=== PATIENT | female | born 1980 | race Hispanic/Latino ===

== ENCOUNTER 2017-07-12 21:12 | Emergency (ER) | payer OTHER ==
[~2017-07-12 21:12] MED LIST: ISOVUE-370 76%-LOCM 1 ML ONE; Iopamidol 370 76% 50 ML VIAL FS ONE
[2017-07-12 21:42] LABS: #Eosinphils 0.2 thou/uL (0.0-0.7); #Lymphocytes 2.9 thou/uL (1.20-3.40); #Monocytes 0.4 thou/uL (0.11-0.59); #Neutrophils 6.9 thou/uL (1.40-6.50); %Basophils 0.2 % (0.0-1.0); %Eosinophils 1.5 % (0.0-10.0); %Lymphocytes 27.8 % (21.0-51.0); %Monocytes 4.2 % (0.0-10.0); Hematocrit 32.7 % (36.0-47.0); Mean Platelet Volume 6.8 fL (7.4-10.4); Red Blood Cell (RBC) Count 4.37 mill/uL (4.20-5.40); White Blood Cell (WBC) Count 10.5 thou/uL (4.8-10.8)
[2017-07-12 21:48] LABS: PTT 25.8 SEC (22.9-36.1); Prothrombin Time 13.6 SEC (12.0-14.7)
[2017-07-12 22:01] LABS: ALT (SGPT) 19 U/L (8-55); AST (SGOT) 20 U/L (5-34); Alkaline Phosphatase 89 U/L (40-150); Anion Gap 15 mmol/L (10-20); BUN (Urea Nitrogen) 13 mg/dL (7.0-18.7); Bilirubin, Total 0.3 mg/dL (0.2-1.2); Calc. Creatinine Clearance 0 mL/min (70-130); Calcium 9.4 mg/dL (7.8-10.44); Carbon Dioxide 22 mmol/L (22-29); Chloride 106 mmol/L (98-107); Estimated GFR-MDRD Greater than 90; Globulin 4.2 g/dL (2.4-3.5); Protein, Total 8.3 g/dL (6.0-8.3)
[2017-07-12 22:02] LABS: Microcytosis SLIGHT = 6-15 cells (100X) (0-5/hpf)
[2017-07-12] MEDS ORDERED: Ondansetron HCl/PF 4 MG/2 ML Vial ONE (22:30)
--- NOTE | 2017-07-12 23:13 | RAD ---
CHEST ONE VIEW ABDOMEN TWO VIEWS: History: 37-year-old female with abdominal pain, constipation and past medial history of diverticulitis. FINDINGS: No acute intrathoracic disease. Post op cholecystectomy. Gas and fecal material in the colon. No jameson dence for overt large or small bowel obstruction, free air, overt calculus or other acute process. IMPRESSION: Unremarkable chest one view, abdomen two views. POS: KATHERINE
--- NOTE | 2017-07-13 07:34 | CT ---
ABDOMEN AND PELVIC CT SCAN WITH IV CONTRAST: HISTORY: A 37-year-old female with generalized abdominal pain. History of diverticulitis. The patient prese nts with rectal bleeding. COMPARISON: 05/13/17. FINDINGS: Lung bases are clear. There is some reflux into the distal esophagus. Status post cholecystectomy with minimal air within some of the left-sided bile ducts. Visualized pancreas, spleen, and adrenal glands are unremarkable. No renal calculus or acute obstruction. Normal-appearing appendix. 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 No evidence for acute diverticulitis. IMPRESSION: Evidence for gastroesophageal reflux. Status post cholecystectomy. No evidence for acute diverticu litis. No Ct evidence for acute appendicitis with a normal-appearing appendix. No other significan t acute process. POS: MICHAEL
== END 2017-07-13 00:20 | disposition home or self-care (01) ==
LOC: ERS 21:12
DX: K57.90 Diverticulosis of intestine, part unspecified, without perforation or abscess without bleeding (principal); K21.9 Gastro-esophageal reflux disease without esophagitis; F32.9 Major depressive disorder, single episode, unspecified; Z79.899 Other long term (current) drug therapy
CPT/HCPCS: 36415; 74022; 74177; 80053; 84702; 85025; 85610; 85730; 86850; 86900; 86901; 93005; 96374; 96375; J2270; J2405

== ENCOUNTER 2017-08-02 15:18 | Outpatient (CLI) | payer OTHER ==
[2017-08-02 16:19] LABS: #Basophils 0.1 thou/uL (0.0-0.2); #Eosinphils 0.1 thou/uL (0.0-0.7); #Lymphocytes 2.4 thou/uL (1.20-3.40); #Monocytes 0.3 thou/uL (0.11-0.59); #Neutrophils 6.1 thou/uL (1.40-6.50); %Basophils 0.7 % (0.0-1.0); %Lymphocytes 26.4 % (21.0-51.0); %Monocytes 3.6 % (0.0-10.0); Hematocrit 31.4 % (36.0-47.0); Mean Platelet Volume 6.6 fL (7.4-10.4); Red Blood Cell (RBC) Count 4.23 mill/uL (4.20-5.40)
[2017-08-02 16:25] LABS: Hemoglobin A1c 5.4 % (4.0-6.0)
[2017-08-02 16:32] LABS: Anion Gap 11 mmol/L (10-20); BUN (Urea Nitrogen) 10 mg/dL (7.0-18.7); Calc. Creatinine Clearance 0 mL/min (70-130); Calcium 9.5 mg/dL (7.8-10.44); Carbon Dioxide 25 mmol/L (22-29); Chloride 105 mmol/L (98-107); Estimated GFR-MDRD Greater than 90
== END 2017-08-02 15:19 | disposition home or self-care (01) ==
LOC: LABBT 15:18
PROVIDERS: ATTEND Student in an Organized Health Care Education/Training Program
DX: Z01.812 Encounter for preprocedural laboratory examination (principal); R10.9 Unspecified abdominal pain; D64.9 Anemia, unspecified; N92.1 Excessive and frequent menstruation with irregular cycle
CPT/HCPCS: 80048; 83036; 84703; 85025; 86850; 86900; 86901

== ENCOUNTER 2017-08-02 15:30 | Inpatient (IN) | payer OTHER ==
[2017-08-03] MEDS ORDERED: Clindamycin/D5W 900 mg/50 ml Premix Bag ONE (10:27)
[2017-08-03] MEDS ORDERED: Levofloxacin 500 mg/D5W 100 ml Premix Bag ONE (10:27)
[2017-08-03] MEDS ORDERED: Bupivacaine 0.25% HCL 30 ML VIAL ONE ×2 (13:42→16:07)
[2017-08-03] MEDS ORDERED: Bupivacaine PF 0.5% 30 ML VIAL ONE (13:43)
[2017-08-03] MEDS ORDERED: Fentanyl 100 MCG/2 ML VIAL ONE ×2 (13:45→20:59)
[2017-08-03] MEDS ORDERED: Midazolam HCl 2 mg/2 ml Vial ONE (13:45)
[2017-08-03] MEDS ORDERED: Ondansetron HCl/PF 4 MG/2 ML Vial ONE (14:08)
[2017-08-03] MEDS ORDERED: PHENYLEPHRINE-NS 100 MCG/ML 10 ML SYRINGE ONE (14:08)
[2017-08-03] MEDS ORDERED: Lidocaine 2% PF 10 ML AMP (For Epidural Use) ONE (14:08)
[2017-08-03] MEDS ORDERED: Propofol 200 MG/20 ML VIAL ONE (14:08)
[2017-08-03] MEDS ORDERED: Promethazine HCl 25 MG/ML VIAL IM PRN ×2 (14:19→22:03)
[2017-08-03] MEDS ORDERED: Promethazine HCl 25 MG/ML VIAL SLOW IVP PRN (14:19)
[2017-08-03] MEDS ORDERED: Ondansetron HCl/PF 4 MG/2 ML Vial IVP PRN ×2 (14:19→22:03)
[2017-08-03] MEDS ORDERED: Morphine 10 MG/ML VIAL ONE (18:58)
[2017-08-03] MEDS ORDERED: Morphine 10 MG/ML VIAL SLOW IVP PRN (22:03)
[2017-08-03] MEDS ORDERED: hydrALAZINE 20 MG/ML VIAL SLOW IVP PRN (22:03)
[2017-08-03 22:20] VITALS: BMI 35.2
[2017-08-03] MEDS: Morphine 2 MG/ML SYRINGE SLOW IVP PRN (22:34)
[2017-08-03] MEDS: D5 1/2 NS w/20 mEq KCL 1,000 ML IV SCH (22:36)
[2017-08-03] MEDS ORDERED: Enoxaparin Sodium 40 MG/0.4 ML SYRINGE SC SCH (22:45)
[2017-08-03] MEDS: Ketorolac Tromethamine 30 MG/ML VIAL IVP SCH (23:15)
[2017-08-03] MEDS: Famotidine/PF 20 mg/2ml Vial SLOW IVP SCH (23:17)
[2017-08-03] MEDS: Famotidine 20 MG TAB PO SCH (23:18)
[2017-08-04] MEDS: Morphine 2 MG/ML SYRINGE SLOW IVP PRN ×3 (00:24→20:32)
[2017-08-04] MEDS: Acetaminophen 1,000 MG in Premix Bag 1 BAG IVPB SCH ×4 (00:25→19:02)
[2017-08-04] MEDS: metroNIDAZOLE 500 MG in Premix Bag 1 BAG IVPB SCH ×3 (00:28→11:16)
--- NOTE | 2017-08-04 00:44 | OP ---
DATE OF OPERATION: 08/03/2017 PREOPERATIVE DIAGNOSES: 1. Menorrhagia. 2. Anemia. 3. Pelvic pain. POSTOPERATIVE DIAGNOSES: 1. Menorrhagia. 2. Anemia. 3. Pelvic pain. PROCEDURES PERFORMED: Robotic assisted total laparoscopic hysterectomy and bilateral salpingectomy. ANESTHESIA: General endotracheal. ATTENDING SURGEON: Sary Friend MD AVIATION MEDICINE SPECIALIST SURGEON: Anitra Fu MD ESTIMATED BLOOD LOSS: [address] Cervantes's dictation for full fluid and urine output. SPECIMENS: Uterus, cervix, and bilateral fallopian tubes. COMPLICATIONS: None. DRAINS: Ha catheter. FINDINGS: On exam under anesthesia, a 12-week size mobile uterus. Uterus sounded to 11 cm. On int ra-abdominal survey, the uterus was globally enlarged. The fallopian tubes and ovaries were normal bilaterally. There was a normal upper abdominal survey. OPERATIVE TECHNIQUE: The patient was taken to the operating room where general anesthesia was obtai germain without difficulty. The patient was prepped and draped in a sterile fashion in the dorsal litho jose cruz position. Ha catheter was placed in the bladder. Speculum was placed in the vagina and the anterior lip of the cervix was grasped with a single tooth tenaculum and the uterus sounded to 11 c m. The KELLY manipulator was assembled with a 10 cm tip and a 4 cm colpotomizer ring. The cervix wa s progressively dilated and the manipulator tip was inserted to the uterine fundus. The balloon was inflated. Instruments were removed out of the vagina and the colpotomizer ring was advanced to fit snugly around the cervix. Vaginal occluder balloon was then inflated and the legs were placed in l ow lithotomy. Attention was turned to the abdomen. A supraumbilical skin incision that was 12 mm w as made after infiltrating with 0.5% Marcaine without epinephrine. The Veress needle was passed int o the abdomen noting an opening pressure of 3 mmHg. Pneumoperitoneum was obtained without difficult y. Veress needle was removed. A 12 mm trocar was passed into the abdomen confirming placement with the robotic camera. Steep Trendelenburg was obtained. The right and left lower 8 mm robotic troca rs were placed after infiltrating with anesthetic under direct visualization. The right upper quadr ant medical receptionist assistant port was placed under direct visualization as well and this was 11 mm. The robot was undocked. The right robotic arm contained the monopolar scissors. The left robotic arm contained t he fenestrator bipolar. At that time, the surgeon console took control and the right fallopian tube was grasped and elevated. A window was made in the mesosalpinx, cauterizing vessels with the fenes trator and then incising with the scissors. Once the uterine cornua was met, the fallopian tube was clamped across, cauterized, transected and the fallopian tube was removed out of the abdomen. The utero-ovarian ligament was cauterized multiple times with the fenestrator and transected with scisso rs. This was taken down to the level of the round ligament that was cauterized in the mid portion a nd transected. This opened up the anterior leaf of the broad ligament that was incised with the sci ssors and taken down to the level of the bladder flap. The posterior leaf of the broad ligament was also opened up down to the level of the uterosacral. The reticular fibers of the retroperitoneum w ere taken down and subsequently the uterine vessels on the right side were skeletonized. The pedicl e was then cauterized and at that time, the vesicouterine peritoneum was identified and undermined w ith the fenestrator and incised with the scissors to create a bladder flap. At that time, the uteru s was tilted to the right side and the left fallopian tube was grasped and elevated and the mesosalp inx was cauterized and transected and the fallopian tube was then clamped across cauterized, transec giorgio and removed out of the abdomen. The utero-ovarian was cauterized and transected down to the rou nd ligament that was cauterized in the mid portion and transected, and this was incised on the anter ior leaf of the broad ligament down to the level of the contralateral side's incision. The left alex e of the vessels were skeletonized adequately as well as the posterior leaf of the broad ligament dr opped down to the uterosacral. The vessels were then cauterized, transected and dropped down below the level of the colpotomizer ring to allow the ureter to flow away. The bladder flap was then furt her created with a scoring technique on the pubocervical fascia, dissecting down bluntly with the ba ck end of the scissors. Hemostasis of the bladder flap was achieved with the fenestrator and the ri ght uterine vessels were once again cauterized, transected and taken down below the level of the col potomizer ring. Anterior colpotomy was performed, carried around to the lateral apices where the fe nestrator was flipped underneath the cardinal ligament for added hemostasis. The colpotomy was comp lete posteriorly and the uterus was then removed into the vagina. Irrigation of the vaginal cuff wa s performed and hemostasis was achieved of the vaginal cuff with the fenestrator. The scissors were traded out for the needle trencher driver and the 2-0 barbed Stratafix suture was used to close the cuff in a running fashion incorporating vaginal mucosa and posterior peritoneum in each bite and closure was excellent. The needle was removed out of the abdomen. The pelvis was irrigated. A low pressure c heck was performed and hemostasis was noted. At that time, all the instruments were removed out of the abdomen. The robot was undocked. At that time, Dr. Cervantes was called for her portion of the s urgery which was a laparoscopic sigmoidectomy and please see her dictation for details of her proced ure. My portion of the case was uncomplicated. The patient received Levaquin and clindamycin prior to the procedure secondary to penicillin anaphylaxis and all counts were correct. Vaginal cuff was checked and no active bleeding was noted.
[2017-08-04] MEDS: Ketorolac Tromethamine 30 MG/ML VIAL IVP SCH ×4 (05:37→23:34)
[2017-08-04 06:36] LABS: #Lymphocytes 1.8 thou/uL (1.20-3.40); #Monocytes 0.4 thou/uL (0.11-0.59); #Neutrophils 7.2 thou/uL (1.40-6.50); %Basophils 0.2 % (0.0-1.0); %Eosinophils 0.2 % (0.0-10.0); %Lymphocytes 19.3 % (21.0-51.0); %Monocytes 4.7 % (0.0-10.0); Hematocrit 30.8 % (36.0-47.0); Mean Platelet Volume 6.8 fL (7.4-10.4); Red Blood Cell (RBC) Count 4.11 mill/uL (4.20-5.40); White Blood Cell (WBC) Count 9.5 thou/uL (4.8-10.8)
[2017-08-04 07:00] LABS: Anion Gap 10 mmol/L (10-20); BUN (Urea Nitrogen) 4 mg/dL (7.0-18.7); Calc. Creatinine Clearance 189 mL/min (70-130); Calcium 8.8 mg/dL (7.8-10.44); Carbon Dioxide 22 mmol/L (22-29); Chloride 108 mmol/L (98-107); Estimated GFR-MDRD Greater than 90
--- NOTE | 2017-08-04 08:54 | PRG ---
DATE OF SERVICE: 08/04/2017 SUBJECTIVE: Ms. Dejesus is feeling good this morning. She did get up and ambulate in the hart last ni ght after her operation. She is not nauseated. She has not passed any flatus. Her incisions are c lean, dry, and intact. Labs are still pending. Vital signs are good. ASSESSMENT: Status post robotic laparoscopic hysterectomy and laparoscopic hand-assisted sigmoid co lectomy for menorrhagia and multiple recurrent diverticulitis. She is recovering well. She will ge t some ice chips today and continue to ambulate. An abdominal binder has been ordered since she sta mayi that her incisions feel better when there is a pressure on it.
[2017-08-04] MEDS ORDERED: FLU VACC QS2017-18 36 mo. & older 0.5 ML SYRINGE IM ONE (09:00)
[2017-08-04] MEDS: Famotidine/PF 20 mg/2ml Vial SLOW IVP SCH ×2 (09:23→21:39)
[2017-08-04] MEDS: Famotidine 20 MG TAB PO SCH ×2 (09:23→21:40)
[2017-08-04] MEDS: D5 1/2 NS w/20 mEq KCL 1,000 ML IV SCH ×3 (09:25→23:36)
--- NOTE | 2017-08-04 16:22 | PRG ---
DATE OF SERVICE: 08/04/2017 TIME OF VISIT: 09:30 SUBJECTIVE: The patient reports pain is controlled on IV morphine and Toradol. She has no nausea o r vomiting. No shortness of breath or chest pain. She has not passed gas and ambulated last night in the hallway. OBJECTIVE: VITAL SIGNS: Blood pressure 120/80, temperature 98.2, pulse is 76, respirations 16, pulse ox 97% on room air. Intake 1080 and output 2250. GENERAL: In no acute distress. CARDIAC: Regular rate and rhythm. LUNGS: Clear to auscultation bilaterally. ABDOMEN: Soft, appropriately tender to palpation. Bowel sounds are positive. No distention. Inci sions are clean, dry, and intact. EXTREMITIES: No edema, cyanosis or clubbing. LABORATORY: Hemoglobin 9.8, hematocrit 30.8, platelets 413. Chemistry is normal. ASSESSMENT: This is a 37-year-old status post robotic-assisted total laparoscopic hysterectomy, vikas ateral salpingectomy, and laparoscopic sigmoid colectomy by Dr. Cervantes. Vital signs are stable. Xiao sultana is afebrile. She is doing well and will be advanced to ice chips diet per Dr. Cervantes. She is ambulating and will continue this. An abdominal binder has been ordered and the patient is okay to have Ha catheter discontinued. Continue postoperative care.
[2017-08-04] MEDS ORDERED: Acetaminophen 325 MG TAB PO PRN (20:08)
[2017-08-04] MEDS ORDERED: HYDROcodone/Acetaminophen 7.5/325 mg Tablet PO PRN (20:08)
[2017-08-04] MEDS ORDERED: Acetaminophen 650 MG Suppository PR PRN (20:08)
[2017-08-04] MEDS: Enoxaparin Sodium 40 MG/0.4 ML SYRINGE SC SCH (21:38)
[2017-08-05] MEDS: Morphine 2 MG/ML SYRINGE SLOW IVP PRN ×2 (01:59→19:47)
[2017-08-05] MEDS: Ketorolac Tromethamine 30 MG/ML VIAL IVP SCH ×4 (06:07→23:20)
[2017-08-05] MEDS: D5 1/2 NS w/20 mEq KCL 1,000 ML IV SCH ×3 (08:38→23:20)
[2017-08-05] MEDS: Famotidine 20 MG TAB PO SCH ×2 (08:50→21:25)
[2017-08-05] MEDS: Famotidine/PF 20 mg/2ml Vial SLOW IVP SCH ×2 (08:58→20:14)
--- NOTE | 2017-08-05 13:28 | PDOC.OP ---
Operative Note - Operative Note Operative Note: PROCEDURE: Laparoscopic hand-assisted sigmoid colectomy and splenic flexure mobilization DATE OF PROCEDURE: 08/03/2017 SURGEON: Kong Cervantes M.D. PREOPERATIVE DIAGNOSES: Multiply recurrent diverticulitis POSTOPERATIVE DIAGNOSIS: Multiply recurrent diverticulitis HISTORY: Patient is a 37-year-old woman with multiply recurrent diverticulitis with 3 episodes in the past year and persistent left lower quadrant pain even between episodes of diverticulitis. She has decided to proceed with laparoscopic colectomy for symptomatically relief. She also has a history of severe menorrhagia and is going to have a concurrent hysterectomy. PROCEDURE IN DETAIL: After informed consent and appropriate bowel preparation were obtained the patient was taken to the operating room where she underwent a robotic hysterectomy by Dr. Friend. This part of the procedure is dictated under separate cover. A 6 cm periumbilical incision was then made and the GelPort placed. Positioning of the ports was suboptimal for the sigmoid colectomy so two additional 5 mm dissecting ports were placed in the upper midline and the left lower quadrant under direct vision of the laparoscope. The sigmoid colon was noted to be thickened distally but relatively normal proximally. The left colon was normal to palpation. The left colon was mobilized by incising the white line of Toldt and mobilizing the colon medially. The omentum was mobilized off of the transverse colon and the splenic flexure carefully taken down from both directions until the entire descending colon was mobilized.. Attention was then turned to the sigmoid colon. The peritoneal reflection was divided and the sigmoid colon carefully mobilized medially. The ureter was easily located in its usual position and completely avoided for the remainder of the case. There were no significant adhesions in the area where the colon overlaid the ureter, with most of the adhesions being lower in the sigmoid and between 2 loops of the sigmoid colon. The upper rectum was soft and normal. The peritoneum was divided overlying the upper rectum and the mesorectum sequentially divided with LigaSure. The previously placed right lateral 8 mm port was then removed and a 12 mm port placed at this position. An Endo SUNSHINE stapler was placed across the upper rectum and divided with 2 loads of the 45 mm stapler. The normal soft descending colon easily reached down into the pelvis to the level of the upper rectum. The area of the planned anastomosis was identified on the descending colon and the mesocolon sequentially divided with the LigaSure up to this level. The colon was then externalized through the GelPort and towels placed to prevent contamination circumferentially around the colon. The planned area of anastomosis was marked on the antimesenteric edge of the descending colon. A colotomy was created 5 cm distal to this area and to the colon sized. It accepted up to a 29 mm sizer so the 29 mm EEA stapler was obtained. The anvil was placed through the colotomy and the spike advanced through the antimesenteric edge of the descending colon at the planned anastomosis site. A pursestring suture was placed around the base of the anvil stalk and secured. The colon was then divided with the Endo SUNSHINE stapler distal to the anvil and the colon specimen passed from the table. This was not marked but the pathologists were informed that the enterotomy is at the proximal end of the specimen. The colon was then placed back into the abdominal cavity and all dirty and La passed from the field. Insufflation was resumed. Gloves were changed before resumption of laparoscopic portion of the case. The rectum easily accepted up to the 31 mm sizer. The 29 mm EEA stapler was advanced transanally to the end of the rectal pouch and the spike advanced just anterior to the staple line. This was mated to the anvil and orientation of the colon was verified. The EEA stapler was closed and fired. The stapler was then withdrawn and 2 full-thickness donuts of tissue were verified. The descending colon was then clamped and saline instilled into the pelvis. The rectum was insufflated and the staple line carefully examined. There was no bubbling through the saline and hemostasis was excellent. The saline was suctioned out and the operative site easily irrigated to clear. Hemostasis was again verified and the 12 and 8 mm ports withdrawn and closed with 0 Vicryl suture on a GraNee needle under direct laparoscopic vision. Trocar was then placed through the GelPort and the 5 mm ports withdrawn and hemostasis at these sites verified as well. The GelPort was removed and the omentum drawn down over the intestine. Seprafilm was placed between the omentum and anterior abdominal wall and the periumbilical incision was closed with a running PDS suture with excellent technical result. The incisions were copiously irrigated and skin incisions closed with 40 subcutaneous together Monocryl sutures. Dermabond dressings were placed and the patient was extubated and taken to the recovery room in good condition. Estimated blood loss for this portion of the case was minimal. There were no complications. Specimen is sigmoid colon, with enterotomy at the proximal end of specimen.
[2017-08-05] MEDS: Enoxaparin Sodium 40 MG/0.4 ML SYRINGE SC SCH (20:14)
[2017-08-05] MEDS: HYDROcodone/Acetaminophen 7.5/325 mg Tablet PO PRN (22:25)
[2017-08-06] MEDS: Ketorolac Tromethamine 30 MG/ML VIAL IVP SCH ×2 (05:27→12:22)
[2017-08-06] MEDS: HYDROcodone/Acetaminophen 7.5/325 mg Tablet PO PRN ×2 (05:31→11:29)
[2017-08-06] MEDS: D5 1/2 NS w/20 mEq KCL 1,000 ML IV SCH (07:47)
[2017-08-06] MEDS: Famotidine/PF 20 mg/2ml Vial SLOW IVP SCH (08:50)
[2017-08-06] MEDS: Famotidine 20 MG TAB PO SCH (08:55)
[2017-08-06 15:48] VITALS: BP 148/74; TEMP 98
== END 2017-08-06 17:10 | disposition home or self-care (01) | DRG 331 ==
LOC: SURG A 08-03 10:07
PROVIDERS: ADMIT Student in an Organized Health Care Education/Training Program; ATTEND Student in an Organized Health Care Education/Training Program
PROC: 0UT94ZZ Resection of Uterus, Percutaneous Endoscopic Approach (ICD-10-PCS; principal; 2017-08-03)
PROC: 0DTN4ZZ Resection of Sigmoid Colon, Percutaneous Endoscopic Approach (ICD-10-PCS; 2017-08-03)
PROC: 0UTC4ZZ Resection of Cervix, Percutaneous Endoscopic Approach (ICD-10-PCS; 2017-08-03)
PROC: 0UT74ZZ Resection of Bilateral Fallopian Tubes, Percutaneous Endoscopic Approach (ICD-10-PCS; 2017-08-03)
PROC: 8E0W4CZ Robotic Assisted Procedure of Trunk Region, Percutaneous Endoscopic Approach (ICD-10-PCS; 2017-08-03)
DX: K57.32 Diverticulitis of large intestine without perforation or abscess without bleeding (principal); D64.9 Anemia, unspecified; N92.0 Excessive and frequent menstruation with regular cycle
CPT/HCPCS: 36415; 36416; 80048; 83036; 84703; 85025; 86850; 86900; 86901; 88307; J0131; J1650; J1885; J1956; J2001; J2250; J2270; J2405; J2704; J3010; J3490; S0020; S0028

== ENCOUNTER 2018-03-05 18:37 | Emergency (ER) | payer OTHER ==
[~2018-03-05 18:37] MED LIST changes: -Iopamidol 370 76% 50 ML VIAL FS ONE
[2018-03-05 19:41] LABS: #Eosinphils 0.2 thou/uL (0.0-0.7); #Lymphocytes 2.9 thou/uL (1.20-3.40); #Monocytes 0.6 thou/uL (0.11-0.59); #Neutrophils 7.8 thou/uL (1.40-6.50); %Basophils 0.1 % (0.0-1.0); %Eosinophils 1.9 % (0.0-10.0); %Lymphocytes 25.3 % (21.0-51.0); %Monocytes 5.1 % (0.0-10.0); %Neutrophils 67.6 % (42.0-75.0); Hemoglobin 11.4 g/dL (12.0-16.0); Mean Corpuscular HGB CONC 32.7 g/dL (32.0-36.0); Mean Corpuscular Hemoglobin 25.5 pg (27.0-31.0); Mean Corpuscular Volume 77.9 fl (81.0-99.0); Mean Platelet Volume 6.5 fL (7.4-10.4); Platelet Count 410 thou/uL (130-400); RBC Distribution Width 14.3 % (11.5-14.5); Red Blood Cell (RBC) Count 4.47 mill/uL (4.20-5.40); White Blood Cell (WBC) Count 11.5 thou/uL (4.8-10.8)
[2018-03-05 20:03] LABS: ALT (SGPT) 32 U/L (8-55); AST (SGOT) 22 U/L (5-34); Albumin 4.1 g/dL (3.5-5.0); Alkaline Phosphatase 81 U/L (40-150); Anion Gap 11 mmol/L (10-20); BUN (Urea Nitrogen) 11 mg/dL (7.0-18.7); Bilirubin, Total 0.3 mg/dL (0.2-1.2); Calc. Creatinine Clearance 0 mL/min (70-130); Calcium 9.2 mg/dL (7.8-10.44); Carbon Dioxide 22 mmol/L (22-29); Chloride 108 mmol/L (98-107); Estimated GFR-MDRD Greater than 90; Globulin 3.7 g/dL (2.4-3.5); Glucose 99 mg/dL (70-105); Lipase 24 U/L (8-78); Potassium 3.8 mmol/L (3.5-5.1); Protein, Total 7.8 g/dL (6.0-8.3); Sodium 137 mmol/L (136-145)
[2018-03-05 20:32] LABS: Troponin I Less than 0.010 ng/mL (< 0.028)
[2018-03-05 23:51] LABS: Bilirubin Negative (Negative); Blood, Urine Negative (Negative); Clarity CLEAR (Clear); Glucose, Urine (Dipstick) Negative (Negative); Leukocyte Negative (Negative); Nitrite Negative (Negative); Protein, Urine (Dipstick) Negative (Neg-Trace); Urobilinogen 0.2 mg/dL (0.2-1.0); pH, Urine 6.5 (5.0-9.0)
[2018-03-06] MEDS ORDERED: Morphine 4 MG/ML VIAL ONE (00:05)
[2018-03-06] MEDS ORDERED: Ondansetron ODT 4 MG TAB ONE (00:06)
--- NOTE | 2018-03-06 07:38 | CT ---
ABDOMEN AND PELVIS CT WITH CONTRAST: COMPARISON: 07/12/17. CLINICAL HISTORY: Diffuse lower abdominal pain. FINDINGS: Mild dependent volume loss is present at the lung bases. There is hepatic steatosis. Evidence of pr ior cholecystectomy. Kidneys and spleen are unremarkable. No peripancreatic inflammation or evidenc e of adrenal mass. Postoperative pneumobilia is present. There is a noninflamed prominent-sized fat -containing periumbilical hernia with a relative wide neck. Abdominal aorta is normal in caliber. N o adenopathy is seen. The bowel is incompletely evaluated without enteric contrast. There is modera te retained fecal material in the colon. Small hiatal hernia is seen. Anastomotic suture material i s present at the rectosigmoid region. No ascites. No acute osseous pathology. IMPRESSION: 1. Hepatic steatosis. 2. Fat-containing periumbilical hernia. Incomplete assessment of the bowel without enteric contrast . There is evidence of interval anastomotic suture material at the rectosigmoid region. Correlate w ith surgical history. POS: MICHAEL
== END 2018-03-06 02:44 | disposition home or self-care (01) ==
LOC: ERS 18:37
DX: K42.9 Umbilical hernia without obstruction or gangrene (principal); K76.0 Fatty (change of) liver, not elsewhere classified; D64.9 Anemia, unspecified; K21.9 Gastro-esophageal reflux disease without esophagitis; F32.9 Major depressive disorder, single episode, unspecified
CPT/HCPCS: 36415; 74177; 80053; 81003; 83690; 84484; 85025; 93005; 96374; 96375; J2270; Q0162

== ENCOUNTER 2018-05-17 11:48 | Emergency (ER) | payer OTHER | END 2018-05-17 14:08 | disposition home or self-care (01) | LOC: ERS 11:48 | DX: K29.70 Gastritis, unspecified, without bleeding (principal); D50.9 Iron deficiency anemia, unspecified; F32.9 Major depressive disorder, single episode, unspecified; K21.9 Gastro-esophageal reflux disease without esophagitis | CPT/HCPCS: 99283 ==

== ENCOUNTER 2018-06-14 17:41 | Emergency (ER) | payer OTHER | END 2018-06-14 19:01 | disposition home or self-care (01) | LOC: ERS 17:41 | DX: M79.644 Pain in right finger(s) (principal); M79.645 Pain in left finger(s); K21.9 Gastro-esophageal reflux disease without esophagitis; D50.0 Iron deficiency anemia secondary to blood loss (chronic); F32.9 Major depressive disorder, single episode, unspecified; Z79.899 Other long term (current) drug therapy | CPT/HCPCS: 99283 ==

== ENCOUNTER 2018-07-12 18:44 | Emergency (ER) | payer OTHER, SELFPAY ==
[2018-07-12] MEDS ORDERED: Metoclopramide HCl 10 MG/2 ML VIAL ONE (19:49)
[2018-07-12] MEDS ORDERED: diphenhydrAMINE 50 MG/ML VIAL IVP ONE (20:00)
[2018-07-12 20:09] LABS: #Eosinphils 0.2 thou/uL (0.0-0.7); #Monocytes 0.4 thou/uL (0.11-0.59); %Basophils 0.4 % (0.0-1.0); %Eosinophils 1.9 % (0.0-10.0); %Lymphocytes 20.6 % (21.0-51.0); %Monocytes 3.8 % (0.0-10.0); %Neutrophils 73.2 % (42.0-75.0); Hemoglobin 12.1 g/dL (12.0-16.0); Mean Corpuscular HGB CONC 32.8 g/dL (32.0-36.0); Mean Corpuscular Hemoglobin 26.5 pg (27.0-31.0); Mean Corpuscular Volume 80.8 fL (78.0-98.0); Mean Platelet Volume 6.6 fL (7.4-10.4); Platelet Count 420 thou/uL (130-400); RBC Distribution Width 14.2 % (11.5-14.5); Red Blood Cell (RBC) Count 4.58 mill/uL (4.20-5.40); White Blood Cell (WBC) Count 9.6 thou/uL (4.8-10.8)
[2018-07-12 20:16] LABS: Bilirubin Negative (Negative); Blood, Urine Negative (Negative); Clarity CLEAR (Clear); Glucose, Urine (Dipstick) Negative (Negative); Leukocyte Negative (Negative); Nitrite Negative (Negative); Protein, Urine (Dipstick) Negative (Neg-Trace); Specific Gravity, Urine 1.015 (1.002-1.036); Urobilinogen 0.2 mg/dL (0.2-1.0)
[2018-07-12 20:34] LABS: ALT (SGPT) 68 U/L (8-55); AST (SGOT) 43 U/L (5-34); Albumin 4.4 g/dL (3.5-5.0); Alkaline Phosphatase 92 U/L (40-150); Anion Gap 13 mmol/L (10-20); BUN (Urea Nitrogen) 6 mg/dL (7.0-18.7); Bilirubin, Total 0.6 mg/dL (0.2-1.2); Calc. Creatinine Clearance 0 mL/min (70-130); Calcium 9.5 mg/dL (7.8-10.44); Carbon Dioxide 22 mmol/L (22-29); Chloride 105 mmol/L (98-107); Estimated GFR-MDRD Greater than 90; Globulin 3.8 g/dL (2.4-3.5); Glucose 96 mg/dL (70-105); Potassium 3.8 mmol/L (3.5-5.1); Protein, Total 8.2 g/dL (6.0-8.3); Sodium 136 mmol/L (136-145)
--- NOTE | 2018-07-12 20:35 | CT ---
HEAD CT WITHOUT CONTRAST: 07/12/18 COMPARISON: 12/18/15. HISTORY: Headache, numbness, tingling. FINDINGS: No parenchymal hemorrhage. No extra-axial hematoma. No midline shift. Basilar cisterns are patent. Br ain volume is age appropriate. Cortical mccormack-white matter differentiation is preserved. The ventricles and sulci are patent and symmetric. The calvarium is intact. Adequate aeration of the sinuses and mastoid air cells. IMPRESSION: No acute intracranial process. POS: PPP
[2018-07-12] MEDS ORDERED: Ketorolac Tromethamine 30 MG/ML VIAL ONE (21:10)
== END 2018-07-12 21:31 | disposition home or self-care (01) ==
LOC: ERS 18:44
DX: R51 Headache (principal); K21.9 Gastro-esophageal reflux disease without esophagitis; F32.9 Major depressive disorder, single episode, unspecified; Z79.899 Other long term (current) drug therapy
CPT/HCPCS: 70450; 80053; 81003; 85025; 96365; 96375; J1200; J1885; J2765

== ENCOUNTER 2018-09-16 15:27 | Outpatient (CLI) | payer OTHER | END 2018-09-16 15:28 | disposition home or self-care (01) | LOC: DTY/OP 15:27 | PROVIDERS: ATTEND Specialist | DX: Z01.818 Encounter for other preprocedural examination (principal); E66.01 Morbid (severe) obesity due to excess calories | CPT/HCPCS: 97802 ==

== ENCOUNTER 2018-10-28 06:33 | Outpatient (CLI) | payer OTHER ==
--- NOTE | 2018-10-28 08:14 | ULT ---
RIGHT UPPER QUADRANT ULTRASOUND: 10/28/2018 PROVIDED CLINICAL HISTORY: Elevated LFTs. FINDINGS: The visualized portions of the pancreas and IVC appear normal. The liver demonstrates diffusely incr eased echogenicity of the parenchyma with a coarsened hepatic echotexture. No evidence for mass or i ntrahepatic biliary ductal dilatation. The gallbladder is not visualized, compatible with the provid ed clinical history of a prior cholecystectomy. The right kidney demonstrates no evidence for hydron ephrosis or mass. The common duct is not dilated. IMPRESSION: Prominent fatty infiltration of the liver. POS: OFF
== END 2018-10-28 06:34 | disposition home or self-care (01) ==
LOC: ULT 06:33
PROVIDERS: ATTEND Family Medicine
DX: R74.0 Nonspecific elevation of levels of transaminase and lactic acid dehydrogenase [LDH] (principal); K76.0 Fatty (change of) liver, not elsewhere classified; Z90.49 Acquired absence of other specified parts of digestive tract
CPT/HCPCS: 76705

== ENCOUNTER 2018-11-24 19:10 | Emergency (ER) | payer OTHER ==
--- NOTE | 2018-11-24 20:13 | RAD ---
CHEST TWO VIEWS: History: Cough. Comparison: 05-13-11 FINDINGS: Heart size and mediastinum within normal limits. Lungs are clear of infiltrates. No bony findings. IMPRESSION: No active intrathoracic disease. POS: [facility]
[2018-11-24] MEDS ORDERED: Dexamethasone 10 MG/ML VIAL ONE (21:32)
== END 2018-11-24 21:54 | disposition home or self-care (01) ==
LOC: ERS 19:10
DX: R05 Cough (principal); K21.9 Gastro-esophageal reflux disease without esophagitis; D50.0 Iron deficiency anemia secondary to blood loss (chronic); I10 Essential (primary) hypertension; F32.9 Major depressive disorder, single episode, unspecified; Z79.899 Other long term (current) drug therapy
CPT/HCPCS: 71046; 96372; J1100

== ENCOUNTER 2019-01-12 19:45 | Emergency (ER) | payer OTHER ==
[2019-01-12 20:44] LABS: Bilirubin Negative (Negative); Blood, Urine Negative (Negative); Clarity CLEAR (Clear); Glucose, Urine (Dipstick) Negative (Negative); Leukocyte Negative (Negative); Nitrite Negative (Negative); Protein, Urine (Dipstick) Negative (Neg-Trace); Specific Gravity, Urine 1.017 (1.002-1.036); Urobilinogen 0.2 mg/dL (0.2-1.0)
[2019-01-12 20:57] LABS: #Basophils 0.1 thou/uL (0.0-0.2); #Eosinphils 0.4 thou/uL (0.0-0.7); #Lymphocytes 2.7 thou/uL (1.20-3.40); #Monocytes 0.5 thou/uL (0.11-0.59); #Neutrophils 10.6 thou/uL (1.40-6.50); %Basophils 0.5 % (0.0-1.0); %Eosinophils 2.6 % (0.0-10.0); %Lymphocytes 18.9 % (21.0-51.0); %Monocytes 3.8 % (0.0-10.0); %Neutrophils 74.3 % (42.0-75.0); Hemoglobin 12.5 g/dL (12.0-16.0); Mean Corpuscular HGB CONC 32.5 g/dL (32.0-36.0); Mean Corpuscular Hemoglobin 27.3 pg (27.0-31.0); Mean Corpuscular Volume 83.9 fL (78.0-98.0); Mean Platelet Volume 6.9 fL (7.4-10.4); Platelet Count 413 thou/uL (130-400); RBC Distribution Width 13.9 % (11.5-14.5); Red Blood Cell (RBC) Count 4.57 mill/uL (4.20-5.40); White Blood Cell (WBC) Count 14.3 thou/uL (4.8-10.8)
[2019-01-12 21:19] LABS: ALT (SGPT) 131 U/L (8-55); AST (SGOT) 99 U/L (5-34); Albumin 4.2 g/dL (3.5-5.0); Alkaline Phosphatase 113 U/L (40-150); Anion Gap 16 mmol/L (10-20); BUN (Urea Nitrogen) 11 mg/dL (7.0-18.7); Bilirubin, Total 0.3 mg/dL (0.2-1.2); Calc. Creatinine Clearance 0 mL/min (70-130); Calcium 9.5 mg/dL (7.8-10.44); Carbon Dioxide 21 mmol/L (22-29); Chloride 104 mmol/L (98-107); Estimated GFR-MDRD Greater than 90; Globulin 3.9 g/dL (2.4-3.5); Glucose 106 mg/dL (70-105); Lipase 20 U/L (8-78); Potassium 3.7 mmol/L (3.5-5.1); Protein, Total 8.1 g/dL (6.0-8.3); Sodium 137 mmol/L (136-145)
[2019-01-12] MEDS ORDERED: Ondansetron ODT 4 MG TAB ONE (21:20)
[2019-01-12 21:46] LABS: Troponin I Less than 0.010 ng/mL (< 0.028)
[2019-01-12] MEDS ORDERED: Dicyclomine 20 MG TAB ONE (22:26)
== END 2019-01-12 22:53 | disposition home or self-care (01) ==
LOC: ERS 19:45
DX: R11.2 Nausea with vomiting, unspecified (principal); F32.9 Major depressive disorder, single episode, unspecified; D50.0 Iron deficiency anemia secondary to blood loss (chronic); K21.9 Gastro-esophageal reflux disease without esophagitis; I10 Essential (primary) hypertension; Z79.899 Other long term (current) drug therapy
CPT/HCPCS: 36415; 80053; 81003; 83690; 84484; 85025; 99284; Q0162

== ENCOUNTER 2019-02-24 04:25 | Outpatient (CLI) | payer OTHER ==
[2019-02-24 16:39] LABS: #Eosinphils 0.3 thou/uL (0.0-0.7); #Lymphocytes 3.1 thou/uL (1.20-3.40); #Monocytes 0.4 thou/uL (0.11-0.59); #Neutrophils 7.5 thou/uL (1.40-6.50); %Basophils 0.1 % (0.0-1.0); %Eosinophils 2.7 % (0.0-10.0); %Lymphocytes 27.2 % (21.0-51.0); %Monocytes 3.8 % (0.0-10.0); %Neutrophils 66.2 % (42.0-75.0); Mean Corpuscular HGB CONC 32.7 g/dL (32.0-36.0); Mean Corpuscular Hemoglobin 27.7 pg (27.0-31.0); Mean Corpuscular Volume 84.7 fL (78.0-98.0); Platelet Count 462 thou/uL (130-400); RBC Distribution Width 12.9 % (11.5-14.5); Red Blood Cell (RBC) Count 4.33 mill/uL (4.20-5.40); White Blood Cell (WBC) Count 11.3 thou/uL (4.8-10.8)
[2019-02-24 16:57] LABS: Anion Gap 12 mmol/L (10-20); BUN (Urea Nitrogen) 13 mg/dL (7.0-18.7); Calc. Creatinine Clearance 0 mL/min (70-130); Calcium 9.8 mg/dL (7.8-10.44); Carbon Dioxide 25 mmol/L (22-29); Chloride 105 mmol/L (98-107); Estimated GFR-MDRD Greater than 90; Glucose 108 mg/dL (70-105); Potassium 3.7 mmol/L (3.5-5.1); Sodium 138 mmol/L (136-145)
[2019-02-24 17:05] LABS: Hemoglobin A1c 6.1 % (4.0-6.0)
--- NOTE | 2019-02-26 09:27 | EKG ---
Test Reason : Blood Pressure : / mmHG Vent. Rate : 087 BPM Atrial Rate : 087 BPM P-R Int : 152 ms QRS Dur : 084 ms QT Int : 364 ms P-R-T Axes : 050 039 024 degrees QTc Int : 438 ms Normal sinus rhythm Inferior infarct (cited on or before 05-MAR-2018) Abnormal ECG When compared with ECG of 05-MAR-2018 20:15, No significant change was found Confirmed by DR. John CARVAJAL ([id number]) on 02/26/2019 9:26:59 AM Referred By: GUERITA Confirmed By:DR. John CARVAJAL
== END 2019-02-24 04:26 | disposition home or self-care (01) ==
LOC: LABBT 04:25
PROVIDERS: ATTEND Specialist
DX: Z01.818 Encounter for other preprocedural examination (principal); E66.01 Morbid (severe) obesity due to excess calories; E11.9 Type 2 diabetes mellitus without complications; I10 Essential (primary) hypertension; K44.9 Diaphragmatic hernia without obstruction or gangrene; Z68.35 Body mass index [BMI] 35.0-35.9, adult; K21.9 Gastro-esophageal reflux disease without esophagitis
CPT/HCPCS: 80048; 83036; 85025; 93005; 93010

== ENCOUNTER 2019-02-24 11:00 | Inpatient (IN) | payer OTHER ==
[2019-02-24 15:57] VITALS: BMI 39.1
[2019-03-02] MEDS ORDERED: Midazolam HCl 2 mg/2 ml Vial ONE (06:36)
[2019-03-02] MEDS ORDERED: Fentanyl 250 MCG/5 ML VIAL ONE (06:36)
[2019-03-02] MEDS ORDERED: Heparin 5,000 UNITS/ML VIAL ONE (06:45)
[2019-03-02] MEDS ORDERED: Ketorolac Tromethamine 30 MG/ML VIAL ONE (06:45)
[2019-03-02] MEDS ORDERED: Scopolamine 1.5 mg/72 hour Patch ONE (06:45)
[2019-03-02] MEDS ORDERED: Sodium Chloride 0.9% 100 ML ONE (06:56)
[2019-03-02] MEDS ORDERED: cefOXitin 2 GM VIAL ONE (06:56)
[2019-03-02] MEDS ORDERED: Bupivacaine/Epinephrine 0.25% 30 ML VIAL ONE (07:13)
[2019-03-02] MEDS ORDERED: cefOXitin Sodium/Dextrose,Iso 2 GM in Premix Bag 1 BAG IVPB SCH (07:15)
[2019-03-02] MEDS ORDERED: Promethazine HCl 25 MG/ML VIAL IM PRN ×2 (11:08→13:57)
[2019-03-02] MEDS ORDERED: Ondansetron HCl/PF 4 MG/2 ML Vial IVP PRN (11:08)
[2019-03-02] MEDS ORDERED: Promethazine HCl 25 MG/ML VIAL SLOW IVP PRN (11:08)
[2019-03-02] MEDS ORDERED: Promethazine HCl 25 MG/ML VIAL ONE (11:38)
[2019-03-02] MEDS ORDERED: Fentanyl 100 MCG/2 ML VIAL ONE ×2 (11:38→12:04)
[2019-03-02] MEDS ORDERED: D5 1/2 NS w/20 mEq KCL 1,000 ML ONE (12:04)
[2019-03-02] MEDS ORDERED: hydrALAZINE 20 MG/ML VIAL SLOW IVP PRN (13:57)
[2019-03-02] MEDS ORDERED: Dextrose 50% Abboject 50 ML SYRINGE SLOW IVP PRN (13:57)
[2019-03-02] MEDS ORDERED: Morphine 2 MG/ML SYRINGE SLOW IVP PRN (13:57)
[2019-03-02] MEDS ORDERED: Dextrose 5% in Water 1,000 ML IV PRN (13:57)
[2019-03-02] MEDS ORDERED: Morphine 4 MG/ML VIAL SLOW IVP PRN (13:57)
[2019-03-02] MEDS ORDERED: diphenhydrAMINE 50 MG/ML VIAL IVP PRN (13:57)
[2019-03-02] MEDS ORDERED: Ondansetron PF 4 MG/2 ML Vial IVP PRN (13:57)
[2019-03-02] MEDS ORDERED: Pantoprazole 40 MG VIAL IVP SCH (14:00)
[2019-03-02] MEDS: Ketorolac Tromethamine 30 MG/ML VIAL IVP SCH ×2 (14:32→20:39)
[2019-03-02] MEDS: Acetaminophen 1,000 MG in Premix Bag 1 BAG IVPB SCH ×2 (14:32→20:36)
[2019-03-02] MEDS ORDERED: Sodium Chloride 0.9% (PF) 10 ML VIAL FS PRN (14:34)
[2019-03-02] MEDS: D5 1/2 NS w/20 mEq KCL 1,000 ML IV SCH ×2 (15:13→18:44)
[2019-03-02] MEDS ORDERED: Enoxaparin Sodium 40 MG/0.4 ML SYRINGE SC SCH (21:00)
[2019-03-03] MEDS: Ketorolac Tromethamine 30 MG/ML VIAL IVP SCH ×2 (02:37→09:36)
[2019-03-03] MEDS: Acetaminophen 1,000 MG in Premix Bag 1 BAG IVPB SCH (02:37)
[2019-03-03] MEDS: D5 1/2 NS w/20 mEq KCL 1,000 ML IV SCH (02:38)
[2019-03-03 05:40] LABS: #Eosinphils 0.1 thou/uL (0.0-0.7); #Lymphocytes 2.4 thou/uL (1.20-3.40); #Monocytes 0.6 thou/uL (0.11-0.59); #Neutrophils 11.5 thou/uL (1.40-6.50); %Basophils 0.1 % (0.0-1.0); %Eosinophils 0.9 % (0.0-10.0); %Lymphocytes 16.2 % (21.0-51.0); %Monocytes 3.9 % (0.0-10.0); %Neutrophils 78.9 % (42.0-75.0); Hemoglobin 11.5 g/dL (12.0-16.0); Mean Corpuscular Hemoglobin 27.4 pg (27.0-31.0); Mean Corpuscular Volume 85.7 fL (78.0-98.0); Mean Platelet Volume 6.7 fL (7.4-10.4); Platelet Count 445 thou/uL (130-400); RBC Distribution Width 12.9 % (11.5-14.5); Red Blood Cell (RBC) Count 4.18 mill/uL (4.20-5.40); White Blood Cell (WBC) Count 14.6 thou/uL (4.8-10.8)
[2019-03-03 06:51] LABS: Anion Gap 13 mmol/L (10-20); BUN (Urea Nitrogen) 5 mg/dL (7.0-18.7); Calc. Creatinine Clearance 189 mL/min (70-130); Calcium 9.5 mg/dL (7.8-10.44); Carbon Dioxide 23 mmol/L (22-29); Chloride 106 mmol/L (98-107); Estimated GFR-MDRD Greater than 90; Glucose 98 mg/dL (70-105); Potassium 4.4 mmol/L (3.5-5.1); Sodium 138 mmol/L (136-145)
[2019-03-03 08:00] VITALS: BP 124/80; TEMP 98.3
[2019-03-03] MEDS ORDERED: Hydrocodone-Acetamin 15 ML UDCUP PO PRN (12:00)
--- NOTE | 2019-03-04 22:16 | OP ---
DATE OF PROCEDURE: 03/02/2019 PREOPERATIVE DIAGNOSES: Morbid obesity, ventral incisional hernia. POSTOPERATIVE DIAGNOSES: Morbid obesity, ventral incisional hernia. OPERATION PERFORMED: Laparoscopic gastric bypass with repair of ventral incisional hernia. FOLDER MACHINE: Dr. Kong Cervantes. ANESTHESIA: General endotracheal. INDICATIONS: The patient is a 38-year-old, morbidly obese, female. She gives a long history of gastroesophageal reflux. Preoperative testing had indicated the likelihood of a hiatal hernia. Plan was to proceed with a laparoscopic gastric bypass and hiatal hernia repair. Additionally, she had a prior sigmoid colectomy. She appeared to have an incisional periumbilical hernia from that surgery. DESCRIPTION OF PROCEDURE: Informed consent was obtained. The patient was taken to the operating room, where general endotracheal anesthesia was obtained with the patient in the supine position. Abdomen was prepped with ChloraPrep and draped in sterile fashion. Local anesthetic was infiltrated using 0.25% Marcaine with epinephrine and a 5-mm supraumbilical incision was created, through which a Veress needle was passed into the peritoneal cavity and pneumoperitoneum was established using carbon dioxide up to a pressure of 15 mmHg. A 5-mm trocar port was passed through the same incision and a laparoscopic camera was passed through this port. Under direct vision, I placed two left upper abdominal incisions, placing a 5-mm port in the left subcostal location and a 15-mm port in the left paramedian location. There were abundant adhesions to the anterior abdominal wall and some in the right abdomen as well. These were taken down using LigaSure dissection in order to clear the anterior abdominal wall. Most of these adhesions were in the area of the recognized incisional hernia. Since we were proceeding with a bypass, all of these omental adhesions had to be lysed in order to give access to the small bowel. When this was completely freed, there was recognized to be a well-defined defect in the anterior abdominal wall measuring an estimated 3.5 cm. Two additional ports were placed in the right abdomen under direct vision, placing a 12 and a 5-mm port in their usual locations. The omentum was then grasped and reflected into the upper abdomen. There were no pelvic adhesions. The omentum was split in the midline down to the level of the transverse colon. This was done with the LigaSure. The ligament of Treitz was then identified and the small bowel was traced 40 cm distally, at which point it was divided with a single fire of the white load of the 60 mm [place] stapler. The distal limb of small bowel was devascularized for a length of 5 cm by taking down the mesentery again using the LigaSure. I then traced the small bowel 100 cm distally and at that point, I created an anastomosis between the proximal stapled end of small bowel and the Nicola limb 100 cm distally. This anastomosis was created with a single firing of the white load of the [place] stapler. The enterotomy was closed with another transverse fire of the white load of the [place] stapler. The mesenteric defect was closed with 3 interrupted sutures of 3-0 Vicryl. The patient was then placed into reverse Trendelenburg. Attention was turned to the stomach. The Leroy retractor was placed in order to elevate the left lobe of the liver. There was no immediate evidence of a hiatal hernia. I dissected the angle of His and still saw no definite evidence of a hiatal hernia. I decided therefore not to pursue hiatal hernia repair and turned my attention to the lesser curve. 5 cm from the gastroesophageal junction, the lesser curve was dissected to give access to the lesser sac. A transverse firing of the blue load of the [place] stapler was made across the stomach at this level. Distal to the staple line in the stomach, a gastrotomy was created, through which the anvil of a 25-mm EEA stapler was passed into the upper pouch. The spike of the anvil was brought out through the anterior aspect of the upper pouch just proximal to the staple line using the 5-mm band Passer. The gastric pouch was then completed with two firings of the blue load of the [place] stapler. The gastrotomy was closed with two firings of the same stapler. There was oozing of blood from along the staple line on both the pouch and the resected segment of the stomach. This was controlled with placement of hemoclips. The spike was removed from the anvil. Attention was then turned to the Nicola limb. In the devascularized segment, an enterotomy was created and the 25 mm stapler was brought through the abdominal wall and passed through the enterotomy and then passed a few centimeters distally. The spike was advanced through the small bowel wall and an anastomosis was created between the gastric pouch and the small bowel by mating the anvil to the stapler, approximating the ends of the bowel and firing the stapler. The staple was removed uneventfully and the donuts were inspected and found to be intact. The enterotomy in the small bowel was resected along with the entire devascularized area with a final firing of the white load of the [place] stapler and that segment of the small bowel was removed. Three sutures were placed in the gastrojejunostomy to buttress the staple line using 3-0 Vicryl. The nasogastric tube was then advanced through the anastomosis, and with the anastomosis and all staple lines under water, air was insufflated into the NG tube with no evidence of air leak. The NG tube was then removed. All irrigant was aspirated. There had been no significant blood loss in any portion of the operation, but the area was irrigated and all irrigant was aspirated. Attention was then turned to the ventral hernia. This was repaired with 3 interrupted sutures of 0 Vicryl placed using the GraNee needle. These sutures were secured with low intraperitoneal pressure allowing complete closure of the fascial defect. The fascia at the 12-mm and the 15-mm ports was closed with 0 Vicryl suture using a GraNee needle. All ports and instruments were removed under direct vision. Pneumoperitoneum was carefully evacuated. Additional 0.25% Marcaine with epinephrine was infiltrated at each port site. Skin edges were approximated with 4-0 Monocryl subcuticular suture. Dermabond was placed externally. There were no complications. The patient tolerated the procedure well and was taken to the recovery room in stable condition. Job ID: [id number]
== END 2019-03-03 11:04 | disposition home or self-care (01) | DRG 621 ==
LOC: SURG A 03-02 06:19 → EDSTATUS 03-02 13:48
PROVIDERS: ADMIT Specialist; ATTEND Specialist
PROC: 0D164ZL Bypass Stomach to Transverse Colon, Percutaneous Endoscopic Approach (ICD-10-PCS; principal; 2019-03-02)
DX: E66.01 Morbid (severe) obesity due to excess calories (principal); I10 Essential (primary) hypertension; K21.0 Gastro-esophageal reflux disease with esophagitis; Z68.39 Body mass index [BMI] 39.0-39.9, adult; Z79.899 Other long term (current) drug therapy; Z98.51 Tubal ligation status; Z90.49 Acquired absence of other specified parts of digestive tract
CPT/HCPCS: 36415; 80048; 85025; 94760; C9113; J0131; J0694; J1644; J1650; J1885; J2250; J2270; J2405; J2550; J3010; J3490

== ENCOUNTER 2019-07-11 17:13 | Emergency (ER) | payer OTHER ==
[2019-07-11] MEDS ORDERED: Ondansetron PF 4 MG/2 ML Vial ONE (18:07)
[2019-07-11] MEDS ORDERED: Meclizine HCl 25 MG TAB ONE (18:07)
[2019-07-11 18:39] LABS: BHCG - Serum Negative (NEGATIVE); Pregs Control Background? CLEAR/WHITE (CLR/WHITE); Pregs Control Bar Appear? YES (CONTROL BAR)
[2019-07-11 18:40] LABS: #Eosinphils 0.2 thou/uL (0.0-0.7); #Lymphocytes 2.5 thou/uL (1.20-3.40); #Monocytes 0.5 thou/uL (0.11-0.59); #Neutrophils 6.7 thou/uL (1.40-6.50); %Basophils 0.4 % (0.0-1.0); %Eosinophils 2.2 % (0.0-10.0); %Lymphocytes 25.3 % (21.0-51.0); %Monocytes 4.8 % (0.0-10.0); %Neutrophils 67.2 % (42.0-75.0); Hemoglobin 11.2 g/dL (12.0-16.0); Mean Corpuscular HGB CONC 33.3 g/dL (32.0-36.0); Mean Corpuscular Hemoglobin 27.6 pg (27.0-31.0); Mean Platelet Volume 7.1 fL (7.4-10.4); Platelet Count 428 thou/uL (130-400); RBC Distribution Width 12.6 % (11.5-14.5); Red Blood Cell (RBC) Count 4.07 mill/uL (4.20-5.40); White Blood Cell (WBC) Count 9.9 thou/uL (4.8-10.8)
[2019-07-11 18:55] LABS: ALT (SGPT) 17 U/L (8-55); AST (SGOT) 20 U/L (5-34); Albumin 3.9 g/dL (3.5-5.0); Alkaline Phosphatase 119 U/L (40-110); Anion Gap 11 mmol/L (10-20); BUN (Urea Nitrogen) 10 mg/dL (7.0-18.7); Bilirubin, Total 0.3 mg/dL (0.2-1.2); Calc. Creatinine Clearance 0 mL/min (70-130); Calcium 8.8 mg/dL (7.8-10.44); Carbon Dioxide 23 mmol/L (22-29); Chloride 109 mmol/L (98-107); Estimated GFR-MDRD Greater than 90; Globulin 3.5 g/dL (2.4-3.5); Glucose 89 mg/dL (70-105); Magnesium 2.1 mg/dL (1.6-2.6); Potassium 3.3 mmol/L (3.5-5.1); Protein, Total 7.4 g/dL (6.0-8.3); Sodium 140 mmol/L (136-145)
== END 2019-07-11 19:32 | disposition home or self-care (01) ==
LOC: ERS 17:13
DX: H81.13 Benign paroxysmal vertigo, bilateral (principal); I10 Essential (primary) hypertension; K21.9 Gastro-esophageal reflux disease without esophagitis; D50.9 Iron deficiency anemia, unspecified; F32.9 Major depressive disorder, single episode, unspecified; Z79.899 Other long term (current) drug therapy
CPT/HCPCS: 36416; 80053; 83735; 84703; 85025; 96361; 96374; J2405; J8597

== ENCOUNTER 2019-08-03 07:46 | Emergency (ER) | payer OTHER ==
[2019-08-03] MEDS ORDERED: Morphine 4 MG/ML VIAL ONE ×2 (08:30→10:47)
[2019-08-03] MEDS ORDERED: Ondansetron PF 4 MG/2 ML Vial ONE (08:30)
[2019-08-03 08:35] LABS: #Eosinphils 0.2 thou/uL (0.0-0.7); #Lymphocytes 2.4 thou/uL (1.20-3.40); #Monocytes 0.4 thou/uL (0.11-0.59); #Neutrophils 6.1 thou/uL (1.40-6.50); %Basophils 0.5 % (0.0-1.0); %Eosinophils 2.5 % (0.0-10.0); %Lymphocytes 26.5 % (21.0-51.0); %Monocytes 4.1 % (0.0-10.0); %Neutrophils 66.4 % (42.0-75.0); Hemoglobin 12.1 g/dL (12.0-16.0); Mean Corpuscular HGB CONC 33.1 g/dL (32.0-36.0); Mean Corpuscular Hemoglobin 27.3 pg (27.0-31.0); Mean Corpuscular Volume 82.6 fL (78.0-98.0); Mean Platelet Volume 7.1 fL (7.4-10.4); Platelet Count 435 thou/uL (130-400); RBC Distribution Width 12.7 % (11.5-14.5); Red Blood Cell (RBC) Count 4.42 mill/uL (4.20-5.40); White Blood Cell (WBC) Count 9.2 thou/uL (4.8-10.8)
[2019-08-03] MEDS ORDERED: diphenhydrAMINE 50 MG/ML VIAL ONE (08:42)
[2019-08-03] MEDS ORDERED: methylPREDNISolone Sod Succ/PF 125 MG/2 ML VIAL ONE (08:43)
[2019-08-03 08:53] LABS: ALT (SGPT) 25 U/L (8-55); AST (SGOT) 26 U/L (5-34); Albumin 4.1 g/dL (3.5-5.0); Alkaline Phosphatase 121 U/L (40-110); Anion Gap 11 mmol/L (10-20); BUN (Urea Nitrogen) 9 mg/dL (7.0-18.7); Bilirubin, Total 0.4 mg/dL (0.2-1.2); Calc. Creatinine Clearance 0 mL/min (70-130); Calcium 9.4 mg/dL (7.8-10.44); Carbon Dioxide 26 mmol/L (22-29); Chloride 106 mmol/L (98-107); Estimated GFR-MDRD Greater than 90; Globulin 3.6 g/dL (2.4-3.5); Glucose 93 mg/dL (70-105); Lipase 13 U/L (8-78); Potassium 3.3 mmol/L (3.5-5.1); Protein, Total 7.7 g/dL (6.0-8.3); Sodium 140 mmol/L (136-145)
--- NOTE | 2019-08-03 09:42 | CT ---
CT ABDOMEN AND PELVIS: 08/03/2019 HISTORY: Possible hernia. Abdominal pain. COMPARISON: None. TECHNIQUE: Axial CT imaging at 5 mm intervals from the lung bases through the pubic symphysis with IV contrast. Coronal and sagittal reformatted imaging obtained. FINDINGS: The visualized lung bases are unremarkable. No free intraperitoneal air or fluid is seen. Cholecystectomy clips are present. Diffuse hypodensity of the hepatic parenchyma suggests steatosis. The spleen, pancreas, adrenal glands, and kidneys demonstrate no acute findings. A small hiatal herni a is noted. There is postoperative change involving the stomach and small bowel within the anterior m id left abdomen, suggesting prior bariatric surgery. A fat-containing umbilical hernia is noted, claribel uring 3-4 cm in transverse dimension. There is a suture line within the colon distally, at the level of the distal sigmoid. There is no jameson dence for bowel inflammatory change or bowel obstruction. The appendix is unremarkable. The vascular structures are patent. No abdominal or pelvic lymphadenopathy. No acute osseous abnormality. IMPRESSION: Incidental/chronic findings as described above. No acute findings are evident. POS: OFF
[2019-08-03] MEDS ORDERED: Thiamine HCl 200 MG/2 ML VIAL SLOW IVP SCH (09:45)
== END 2019-08-03 11:29 | disposition home or self-care (01) ==
LOC: ERS 07:46
DX: K42.9 Umbilical hernia without obstruction or gangrene (principal); I10 Essential (primary) hypertension; K21.9 Gastro-esophageal reflux disease without esophagitis; D50.9 Iron deficiency anemia, unspecified; F32.9 Major depressive disorder, single episode, unspecified; F41.9 Anxiety disorder, unspecified; Z79.899 Other long term (current) drug therapy
CPT/HCPCS: 74177; 80053; 83690; 85025; 96365; 96375; 96376; J1200; J2270; J2405; J2930; J3411

== ENCOUNTER 2020-03-28 22:10 | Emergency (ER) | payer OTHER ==
--- NOTE | 2020-03-29 00:09 | RAD ---
EXAM: CHEST ONE VIEW HISTORY: Cough and chest pain. Sneezing. Body aches. COMPARISON: 11/24/2018 FINDINGS: Cardiac silhouette is magnified by projection. Pulmonary vasculature is within normal limits The lung s are clear. No interval change from prior study. IMPRESSION: No acute cardiopulmonary process.
== END 2020-03-29 00:53 | disposition home or self-care (01) ==
LOC: ERS 22:10
DX: J06.9 Acute upper respiratory infection, unspecified (principal); R51 Headache; R50.9 Fever, unspecified; Z20.828 Contact with and (suspected) exposure to other viral communicable diseases; D50.9 Iron deficiency anemia, unspecified; K21.9 Gastro-esophageal reflux disease without esophagitis; F41.9 Anxiety disorder, unspecified; I10 Essential (primary) hypertension
CPT/HCPCS: 71045; 87635; 93005; U0003

== ENCOUNTER 2020-07-26 17:10 | Emergency (ER) | payer OTHER, SELFPAY ==
[~2020-07-26 17:10] MED LIST changes: -ISOVUE-370 76%-LOCM 1 ML ONE; +Iopamidol 370 76% 50 ML VIAL FS ONE; +Iopamidol-370 76% 500 ML 1 ML ONE
[2020-07-26 17:46] LABS: #Basophils 0.1 thou/uL (0.0-0.2); #Eosinphils 0.2 thou/uL (0.0-0.7); #Lymphocytes 2.4 thou/uL (1.20-3.40); #Monocytes 0.3 thou/uL (0.11-0.59); #Neutrophils 5.3 thou/uL (1.40-6.50); %Basophils 0.7 % (0.0-1.0); %Eosinophils 2.1 % (0.0-10.0); %Lymphocytes 29.3 % (21.0-51.0); %Monocytes 3.5 % (0.0-10.0); %Neutrophils 64.4 % (42.0-75.0); Hemoglobin 11.9 g/dL (12.0-16.0); Mean Corpuscular HGB CONC 33.7 g/dL (32.0-36.0); Mean Corpuscular Hemoglobin 27.6 pg (27.0-31.0); Mean Corpuscular Volume 81.9 fL (78.0-98.0); Mean Platelet Volume 6.9 fL (7.4-10.4); Platelet Count 465 thou/uL (130-400); RBC Distribution Width 12.7 % (11.5-14.5); Red Blood Cell (RBC) Count 4.29 mill/uL (4.20-5.40); White Blood Cell (WBC) Count 8.2 thou/uL (4.8-10.8)
[2020-07-26 17:55] LABS: Bilirubin Negative (Negative); Blood, Urine Negative (Negative); Clarity Clear (Clear); Glucose, Urine (Dipstick) Normal (Negative); Ketone, Urine Negative (Negative); Leukocyte Negative Leu/uL (Negative); Nitrite Negative (Negative); Protein, Urine (Dipstick) Negative (Neg-Trace); Specific Gravity, Urine 1.016 (1.002-1.036); Urobilinogen Normal mg/dL (Less than 2)
[2020-07-26 18:11] LABS: BHCG - Serum Negative (NEGATIVE); Pregs Control Background? CLEAR/WHITE (CLR/WHITE); Pregs Control Bar Appear? YES (CONTROL BAR)
--- NOTE | 2020-07-26 18:11 | CT ---
CT abdomen and pelvis with IV and oral contrast HISTORY: Abdomen pain. COMPARISON: 08/03/2019. FINDINGS: Lung bases are clear. Postoperative changes of the upper abdomen consistent with gastric by pass, stable. No evidence of bowel obstruction or inflammation. Postoperative changes of the sigmoid colon similar in appearance to the prior study. Gallbladder is surgically absent. A fat-containing umbilical hernia is unchanged. Solid organs are intact. No evidence of urinary tract obstruction or calcification. Urinary bladder i s unremarkable. IMPRESSION : Postoperative changes and other chronic-type findings are stable. No acute abnormalities are demonstr ated.
[2020-07-26 18:14] LABS: ALT (SGPT) 16 U/L (8-55); AST (SGOT) 18 U/L (5-34); Albumin 4.5 g/dL (3.5-5.0); Alkaline Phosphatase 119 U/L (40-110); Anion Gap 12 mmol/L (10-20); BUN (Urea Nitrogen) 12 mg/dL (7.0-18.7); Bilirubin, Total 0.4 mg/dL (0.2-1.2); Calc. Creatinine Clearance 0 mL/min (70-130); Calcium 9.3 mg/dL (7.8-10.44); Carbon Dioxide 24 mmol/L (22-29); Chloride 104 mmol/L (98-107); Estimated GFR-MDRD Greater than 90; Globulin 3.9 g/dL (2.4-3.5); Glucose 124 mg/dL (70-105); Lipase 23 U/L (8-78); Potassium 3.3 mmol/L (3.5-5.1); Protein, Total 8.4 g/dL (6.0-8.3); Sodium 137 mmol/L (136-145)
[2020-07-26] MEDS ORDERED: Morphine 4 MG/ML VIAL ONE (18:20)
[2020-07-26] MEDS ORDERED: Ondansetron PF 4 MG/2 ML Vial ONE (18:21)
== END 2020-07-26 19:45 | disposition home or self-care (01) ==
LOC: ERS 17:10
DX: R10.84 Generalized abdominal pain (principal); I10 Essential (primary) hypertension; K21.9 Gastro-esophageal reflux disease without esophagitis; D50.9 Iron deficiency anemia, unspecified; Z95.1 Presence of aortocoronary bypass graft; F41.9 Anxiety disorder, unspecified; F32.9 Major depressive disorder, single episode, unspecified; Z79.899 Other long term (current) drug therapy
CPT/HCPCS: 74177; 80053; 81003; 83690; 84703; 85025; 96374; 96375; J2270; J2405; Q9967

== ENCOUNTER 2020-11-11 08:30 | Emergency (ER) | payer SELFPAY ==
[2020-11-11 09:44] LABS: #Eosinphils 0.1 thou/uL (0.0-0.7); #Lymphocytes 2.3 thou/uL (1.20-3.40); #Monocytes 0.5 thou/uL (0.11-0.59); #Neutrophils 6.5 thou/uL (1.40-6.50); %Basophils 0.3 % (0.0-1.0); %Eosinophils 1.5 % (0.0-10.0); %Lymphocytes 24.3 % (21.0-51.0); %Neutrophils 68.9 % (42.0-75.0); Hemoglobin 12.2 g/dL (12.0-16.0); Mean Corpuscular Hemoglobin 28.1 pg (27.0-31.0); Mean Corpuscular Volume 85.3 fL (78.0-98.0); Mean Platelet Volume 6.9 fL (7.4-10.4); Platelet Count 414 thou/uL (130-400); Red Blood Cell (RBC) Count 4.34 mill/uL (4.20-5.40); White Blood Cell (WBC) Count 9.4 thou/uL (4.8-10.8)
[2020-11-11 09:47] LABS: BHCG - Serum Negative (NEGATIVE); Pregs Control Background? CLEAR/WHITE (CLR/WHITE); Pregs Control Bar Appear? YES (CONTROL BAR)
[2020-11-11 10:03] LABS: ALT (SGPT) 12 U/L (8-55); AST (SGOT) 15 U/L (5-34); Albumin 4.2 g/dL (3.5-5.0); Alkaline Phosphatase 103 U/L (40-110); Anion Gap 13 mmol/L (10-20); BUN (Urea Nitrogen) 12 mg/dL (7.0-18.7); Bilirubin, Total 0.4 mg/dL (0.2-1.2); Calc. Creatinine Clearance 0 mL/min (70-130); Calcium 9.2 mg/dL (7.8-10.44); Carbon Dioxide 27 mmol/L (22-29); Chloride 108 mmol/L (98-107); Globulin 3.5 g/dL (2.4-3.5); Glucose 84 mg/dL (70-105); Potassium 4.4 mmol/L (3.5-5.1); Protein, Total 7.7 g/dL (6.0-8.3); Sodium 144 mmol/L (136-145)
[2020-11-11] MEDS ORDERED: Iopamidol 370 76% 50 ML VIAL FS ONE (10:27)
[2020-11-11] MEDS ORDERED: Iopamidol-370 76% 500 ML 1 ML ONE (10:27)
[2020-11-11 10:39] LABS: Bilirubin Negative (Negative); Blood, Urine Negative (Negative); Glucose, Urine (Dipstick) Negative (Negative); Ketone, Urine Negative (Negative); Leukocyte Negative (Negative); Nitrite Negative (Negative); Protein, Urine (Dipstick) Negative (Neg-Trace); Specific Gravity, Urine 1.025 (1.005-1.030); Urobilinogen 0.2 mg/dL (Less than 2)
[2020-11-11 10:42] LABS: Clarity Clear (Clear)
[2020-11-11] MEDS ORDERED: Famotidine/PF 20 mg/2ml Vial ONE (10:50)
[2020-11-11] MEDS ORDERED: Mag-Al 1200 mg/1200 mg/30 ML UDCUP ONE (10:50)
[2020-11-11] MEDS ORDERED: Lidocaine Viscous Sol 2% 15 ml UD Cup ONE (10:50)
[2020-11-11] MEDS ORDERED: Metoclopramide HCl 10 MG/2 ML VIAL ONE (11:18)
--- NOTE | 2020-11-11 11:56 | CT ---
EXAM: CT ABDOMEN AND PELVIS HISTORY: Diffuse abdominal pain. Nausea. Vomiting and diarrhea. Gastric bypass in February 2020 COMPARISON: 07/26/2020 Procedure: Multiple contiguous axial images were obtained and a CT of the abdomen and pelvis with IV contrast. C oronal reformats were performed. FINDINGS: Lower Chest: within normal limits. Vessels: Normal caliber aorta. No periaortic fat stranding Heart: Normal heart size. No significant pericardial fluid Abdomen: Portal vein:Patent Gallbladder: Surgically absent Liver: Hypoattenuation due to hepatic steatosis. No enhancing masses Pancreas: within normal limits. Spleen: within normal limits. Adrenals: within normal limits. Kidneys: Symmetric enhancement. No obstructive uropathy. Peritoneum: No ascites or free air, no fluid collection. Bowel: Evidence of previous bariatric surgery. There is anastomosis along the sigmoid colon. No evide nce of bowel obstruction. Normal ileocecal junction. Normal caliber appendix. Mesentery and Retroperitoneum: No enlarged mesenteric or retroperitoneal lymph nodes. Stable upper no rmal lymph nodes in the right lower quadrant mesentery. Abdominal Wall: Stable ventral hernia containing mesenteric fat. Hernia defect measures 1.8 cm Pelvis: Reproductive Organs: Surgically absent uterus Pelvis: No mass, lymphadenopathy, free air or free fluid. Bladder: within normal limits. Bones: within normal limits. IMPRESSION: No evidence of acute intraabdominal\pelvic abnormality.
== END 2020-11-11 12:35 | disposition home or self-care (01) ==
LOC: ERS 08:30
DX: R10.10 Upper abdominal pain, unspecified (principal); R19.7 Diarrhea, unspecified; I10 Essential (primary) hypertension; K21.9 Gastro-esophageal reflux disease without esophagitis; D50.9 Iron deficiency anemia, unspecified; Z79.899 Other long term (current) drug therapy
CPT/HCPCS: 36415; 74177; 80053; 81003; 83690; 84703; 85025; 96365; 96375; J2765; Q9967; S0028

== ENCOUNTER 2020-11-13 12:28 | Emergency (ER) | payer SELFPAY ==
[2020-11-13 15:12] LABS: Bilirubin Negative (Negative); Blood, Urine Negative (Negative); Clarity Clear (Clear); Glucose, Urine (Dipstick) Normal (Negative); Ketone, Urine Negative (Negative); Leukocyte Negative Leu/uL (Negative); Nitrite Negative (Negative); Protein, Urine (Dipstick) Negative (Neg-Trace); Specific Gravity, Urine 1.013 (1.002-1.036); Urobilinogen Normal mg/dL (Less than 2)
[2020-11-13 15:19] LABS: #Basophils 0.1 thou/uL (0.0-0.2); #Eosinphils 0.2 thou/uL (0.0-0.7); #Lymphocytes 2.2 thou/uL (1.20-3.40); #Monocytes 0.4 thou/uL (0.11-0.59); #Neutrophils 6.3 thou/uL (1.40-6.50); %Basophils 0.6 % (0.0-1.0); %Eosinophils 2.2 % (0.0-10.0); %Lymphocytes 23.7 % (21.0-51.0); %Monocytes 4.7 % (0.0-10.0); %Neutrophils 68.8 % (42.0-75.0); Hemoglobin 11.6 g/dL (12.0-16.0); Mean Corpuscular HGB CONC 32.5 g/dL (32.0-36.0); Mean Corpuscular Hemoglobin 27.6 pg (27.0-31.0); Mean Corpuscular Volume 84.9 fL (78.0-98.0); Mean Platelet Volume 7.1 fL (7.4-10.4); Platelet Count 392 thou/uL (130-400); White Blood Cell (WBC) Count 9.2 thou/uL (4.8-10.8)
[2020-11-13 15:21] LABS: Pregnancy Test - Urine (BHCG) Negative (Negative); Pregu Control Background? CLEAR/WHITE (CLR/WHITE); Pregu Control Bar Appear? YES (CONTROL BAR); Specific Gravity 1.013 (1.002-1.036)
[2020-11-13 15:52] LABS: ALT (SGPT) 14 U/L (8-55); AST (SGOT) 15 U/L (5-34); Albumin 3.9 g/dL (3.5-5.0); Alkaline Phosphatase 100 U/L (40-110); Anion Gap 12 mmol/L (10-20); BUN (Urea Nitrogen) 11 mg/dL (7.0-18.7); Bilirubin, Total 0.3 mg/dL (0.2-1.2); Calc. Creatinine Clearance 0 mL/min (70-130); Calcium 8.4 mg/dL (7.8-10.44); Carbon Dioxide 24 mmol/L (22-29); Chloride 107 mmol/L (98-107); Globulin 3.5 g/dL (2.4-3.5); Glucose 102 mg/dL (70-105); Lipase 33 U/L (8-78); Potassium 3.7 mmol/L (3.5-5.1); Protein, Total 7.4 g/dL (6.0-8.3); Sodium 139 mmol/L (136-145)
== END 2020-11-13 16:43 | disposition home or self-care (01) ==
LOC: ERS 12:28
DX: R10.31 Right lower quadrant pain (principal); R10.32 Left lower quadrant pain; I10 Essential (primary) hypertension; K21.9 Gastro-esophageal reflux disease without esophagitis
CPT/HCPCS: 36415; 80053; 81003; 81025; 83690; 85025; 99284

== ENCOUNTER 2020-12-26 10:11 | Emergency (ER) | payer SELFPAY ==
[2020-12-26] MEDS ORDERED: Ketorolac Tromethamine 30 MG/ML VIAL ONE (11:10)
[2020-12-26] MEDS ORDERED: Ondansetron PF 4 MG/2 ML Vial ONE (11:10)
== END 2020-12-26 12:47 | disposition home or self-care (01) ==
LOC: ERS 10:11
DX: B37.3 Candidiasis of vulva and vagina (principal); I10 Essential (primary) hypertension; K21.9 Gastro-esophageal reflux disease without esophagitis; D50.9 Iron deficiency anemia, unspecified; Z79.899 Other long term (current) drug therapy
CPT/HCPCS: 80053; 81003; 81025; 83690; 85025; 96372; 96374; 96375; J0500; J1885; J2405

== ENCOUNTER 2021-02-22 18:44 | Emergency (ER) | payer SELFPAY ==
[2021-02-22] MEDS ORDERED: Lidocaine Viscous Sol 2% 15 ml UD Cup ONE (19:49)
[2021-02-22] MEDS ORDERED: Mag-Al 1200 mg/1200 mg/30 ML UDCUP ONE (19:49)
== END 2021-02-22 19:53 | disposition home or self-care (01) ==
LOC: ERS 18:44
DX: S10.11XA Abrasion of throat, initial encounter (principal); I10 Essential (primary) hypertension; K21.9 Gastro-esophageal reflux disease without esophagitis; Z79.899 Other long term (current) drug therapy; X58.XXXA Exposure to other specified factors, initial encounter
CPT/HCPCS: 99283

== ENCOUNTER 2021-03-11 10:41 | Outpatient (CLI) | payer OTHER ==
[2021-03-11 13:12] LABS: #Eosinphils 0.2 10x3/uL (0.0-0.5); #Monocytes 0.4 10x3/uL (0.0-1.1); #Neutrophils 4.5 10x3/uL (1.5-8.4); %Basophils 0.4 % (0.0-2.0); %Eosinophils 2.8 % (0.0-6.0); %Lymphocytes 24.7 % (18.0-47.0); %Monocytes 5.1 % (0.0-10.0); %Neutrophils 66.3 % (40.0-75.0); Mean Corpuscular Hemoglobin 26.1 pg (27.0-33.0); Mean Corpuscular Volume 84.1 fl (81.6-98.3); Mean Platelet Volume 10.2 fl (7.4-10.4); Platelet Count 421 10x3/uL (150-450); RBC Distribution Width 13.5 % (11.5-14.5); White Blood Cell (WBC) Count 6.8 10x3/uL (3.5-10.5)
[2021-03-11 14:02] LABS: Anion Gap 13 mmol/L (10-20); BUN (Urea Nitrogen) 13 mg/dL (7.0-18.7); Calc. Creatinine Clearance 0 mL/min (70-130); Calcium 9.2 mg/dL (7.8-10.44); Carbon Dioxide 24 mmol/L (22-29); Chloride 108 mmol/L (98-107); Glucose 95 mg/dL (70-105); Sodium 141 mmol/L (136-145)
[2021-03-12 07:28] LABS: SARS-CoV-2 NAA Rapid Test Not Detected (NotDetected)
== END 2021-03-11 10:42 | disposition home or self-care (01) ==
LOC: LABBT 10:41
PROVIDERS: ATTEND Specialist
DX: Z01.812 Encounter for preprocedural laboratory examination (principal); K42.9 Umbilical hernia without obstruction or gangrene; Z20.822 Contact with and (suspected) exposure to COVID-19
CPT/HCPCS: 80048; 85025; U0002; U0005

== ENCOUNTER 2021-03-13 05:59 | Day surgery (SDC) | payer OTHER ==
[2021-03-12 11:18] VITALS: BMI 32.9
[2021-03-13] MEDS ORDERED: Ketorolac Tromethamine 30 MG/ML VIAL ONE (06:13)
[2021-03-13] MEDS ORDERED: Acetaminophen 500 MG TAB ONE (06:13)
[2021-03-13] MEDS ORDERED: Levofloxacin 500 mg/D5W 100 ml Premix Bag ONE (06:14)
[2021-03-13] MEDS ORDERED: Lidocaine 1% w/Epinephrine 1:100K 20 ML VIAL ONE (06:43)
[2021-03-13] MEDS ORDERED: Bupivacaine 0.25% HCL 30 ML VIAL ONE (06:43)
[2021-03-13] MEDS ORDERED: Phenylephrine 10 MG/ML VIAL ONE (06:48)
[2021-03-13] MEDS ORDERED: SUGAMMADEX SODIUM 200 MG/2 ML VIAL ONE (06:48)
[2021-03-13] MEDS ORDERED: Fentanyl 100 MCG/2 ML VIAL ONE ×3 (06:48→10:51)
[2021-03-13] MEDS ORDERED: HYDROmorphone 0.5 MG/0.5 ML SYRINGE ONE (06:48)
[2021-03-13] MEDS ORDERED: Lidocaine 1% PF 5 ML VIAL ONE (07:45)
[2021-03-13] MEDS ORDERED: Ondansetron PF 4 MG/2 ML Vial ONE (07:45)
[2021-03-13] MEDS ORDERED: ePHEDrine Sulfate 50 MG/10 ML VIAL ONE (07:45)
[2021-03-13] MEDS ORDERED: Dexamethasone 20 MG/5 ML VIAL ONE (07:45)
[2021-03-13] MEDS ORDERED: PROPOFOL 200 MG/20 ML VIAL ONE (07:45)
[2021-03-13] MEDS ORDERED: Glycopyrrolate 0.2 MG/ML 5 ML SYRINGE ONE ×2 (07:45)
[2021-03-13] MEDS ORDERED: Rocuronium Bromide 10 MG/ML (10ML VIAL) ONE (07:45)
[2021-03-13] MEDS ORDERED: Meperidine HCl/PF 25 MG/ML VIAL ONE (10:35)
[2021-03-13] MEDS ORDERED: HYDROcodone/Acetaminophen 5/325 mg Tablet ONE (12:06)
== END 2021-03-13 13:37 | disposition home or self-care (01) ==
LOC: SDC 05:59
PROVIDERS: ATTEND Specialist
PROC: 0WUF4JZ Supplement Abdominal Wall with Synthetic Substitute, Percutaneous Endoscopic Approach (ICD-10-PCS; principal; 2021-03-13)
DX: K43.2 Incisional hernia without obstruction or gangrene (principal); E66.9 Obesity, unspecified; Z68.32 Body mass index [BMI] 32.0-32.9, adult; Z79.899 Other long term (current) drug therapy; Z88.0 Allergy status to penicillin
CPT/HCPCS: J1100; J1170; J1885; J1956; J2175; J2370; J2405; J2704; J3010; S0020

== ENCOUNTER 2021-08-22 20:10 | Emergency (ER) | payer OTHER | END 2021-08-22 21:45 | disposition home or self-care (01) | LOC: ERS 20:10 | DX: S06.0X0A Concussion without loss of consciousness, initial encounter (principal); K21.9 Gastro-esophageal reflux disease without esophagitis; D50.9 Iron deficiency anemia, unspecified; H53.8 Other visual disturbances; I10 Essential (primary) hypertension; Z87.19 Personal history of other diseases of the digestive system; Y04.0XXA Assault by unarmed brawl or fight, initial encounter | CPT/HCPCS: 96372; 99283 ==

== ENCOUNTER 2021-11-20 09:57 | Emergency (ER) | payer OTHER, SELFPAY ==
[2021-11-20] MEDS ORDERED: Ondansetron PF 4 MG/2 ML Vial ONE (11:11)
[2021-11-20 11:39] LABS: #Eosinphils 0.1 thou/uL (0.0-0.7); #Lymphocytes 2.3 thou/uL (1.20-3.40); #Monocytes 0.3 thou/uL (0.11-0.59); #Neutrophils 4.3 thou/uL (1.40-6.50); %Basophils 0.4 % (0.0-1.0); %Eosinophils 1.3 % (0.0-10.0); %Lymphocytes 32.5 % (21.0-51.0); %Monocytes 4.7 % (0.0-10.0); %Neutrophils 61.1 % (42.0-75.0); Hemoglobin 12.4 g/dL (12.0-16.0); Mean Corpuscular HGB CONC 31.6 g/dL (32.0-36.0); Mean Corpuscular Volume 85.3 fL (78.0-98.0); Mean Platelet Volume 6.9 fL (7.4-10.4); Platelet Count 401 thou/uL (130-400); RBC Distribution Width 12.6 % (11.5-14.5)
[2021-11-20 11:53] LABS: BHCG - Serum Negative (NEGATIVE); Pregs Control Background? CLEAR/WHITE (CLR/WHITE); Pregs Control Bar Appear? YES (CONTROL BAR)
[2021-11-20 11:59] LABS: ALT (SGPT) 14 U/L (8-55); AST (SGOT) 13 U/L (5-34); Albumin 4.5 g/dL (3.5-5.0); Alkaline Phosphatase 96 U/L (40-110); Anion Gap 14 mmol/L (10-20); BUN (Urea Nitrogen) 15 mg/dL (7.0-18.7); Bilirubin, Total 0.5 mg/dL (0.2-1.2); Calc. Creatinine Clearance 0 mL/min (70-130); Calcium 9.4 mg/dL (7.8-10.44); Carbon Dioxide 22 mmol/L (22-29); Chloride 107 mmol/L (98-107); Globulin 3.7 g/dL (2.4-3.5); Glucose 92 mg/dL (70-105); Lipase 26 U/L (8-78); Potassium 3.6 mmol/L (3.5-5.1); Protein, Total 8.2 g/dL (6.0-8.3); Sodium 139 mmol/L (136-145)
[2021-11-20 14:35] LABS: Bilirubin Negative (Negative); Blood, Urine Negative (Negative); Clarity Turbid (Clear); Glucose, Urine (Dipstick) Normal (Negative); Ketone, Urine Negative (Negative); Leukocyte Negative Leu/uL (Negative); Nitrite Negative (Negative); Protein, Urine (Dipstick) 20 mg/dL (Neg-Trace); Specific Gravity, Urine 1.028 (1.002-1.036); Urobilinogen Normal mg/dL (Less than 2); pH, Urine 5.5 (5.0-9.0)
== END 2021-11-20 15:15 | disposition home or self-care (01) ==
LOC: ERS 09:57
DX: U07.1 COVID-19 (principal); R11.2 Nausea with vomiting, unspecified; I10 Essential (primary) hypertension; K21.9 Gastro-esophageal reflux disease without esophagitis; D50.9 Iron deficiency anemia, unspecified; F17.290 Nicotine dependence, other tobacco product, uncomplicated; Z87.19 Personal history of other diseases of the digestive system; Z79.899 Other long term (current) drug therapy
CPT/HCPCS: 36415; 71045; 80053; 81003; 83690; 84484; 84703; 85025; 85379; 96374; J2405

== ENCOUNTER 2022-02-06 18:23 | Emergency (ER) | payer MEDICAID, SELFPAY | END 2022-02-06 18:55 | disposition left against medical advice (07) | LOC: ERS 18:23 | DX: Z53.21 Procedure and treatment not carried out due to patient leaving prior to being seen by health care provider (principal) ==

== ENCOUNTER 2022-02-09 08:18 | Emergency (ER) | payer MEDICAID, SELFPAY ==
[2022-02-09 09:07] LABS: #Eosinphils 0.1 thou/uL (0.0-0.7); #Lymphocytes 1.4 thou/uL (1.20-3.40); #Monocytes 0.3 thou/uL (0.11-0.59); #Neutrophils 4.4 thou/uL (1.40-6.50); %Basophils 0.7 % (0.0-1.0); %Lymphocytes 22.8 % (21.0-51.0); %Monocytes 4.8 % (0.0-10.0); %Neutrophils 69.7 % (42.0-75.0); Hemoglobin 11.7 g/dL (12.0-16.0); Mean Corpuscular HGB CONC 33.1 g/dL (32.0-36.0); Mean Corpuscular Volume 84.5 fL (78.0-98.0); Platelet Count 390 thou/uL (130-400); RBC Distribution Width 12.5 % (11.5-14.5); Red Blood Cell (RBC) Count 4.17 mill/uL (4.20-5.40); White Blood Cell (WBC) Count 6.3 thou/uL (4.8-10.8)
[2022-02-09] MEDS ORDERED: Iopamidol-370 76% 500 ML 1 ML ONE (09:13)
[2022-02-09 09:22] LABS: ALT (SGPT) 10 U/L (8-55); AST (SGOT) 17 U/L (5-34); Albumin 4.3 g/dL (3.5-5.0); Alkaline Phosphatase 100 U/L (40-110); Anion Gap 14 mmol/L (10-20); BUN (Urea Nitrogen) 18 mg/dL (7.0-18.7); Bilirubin, Total 0.6 mg/dL (0.2-1.2); Calc. Creatinine Clearance 0 mL/min (70-130); Calcium 9.3 mg/dL (7.8-10.44); Carbon Dioxide 21 mmol/L (22-29); Chloride 109 mmol/L (98-107); Globulin 3.4 g/dL (2.4-3.5); Glucose 92 mg/dL (70-105); Lipase 17 U/L (8-78); Potassium 3.5 mmol/L (3.5-5.1); Protein, Total 7.7 g/dL (6.0-8.3); Sodium 140 mmol/L (136-145)
[2022-02-09] MEDS ORDERED: Ondansetron PF 4 MG/2 ML Vial ONE (09:46)
[2022-02-09] MEDS ORDERED: Ketorolac Tromethamine 30 MG/ML VIAL ONE (09:46)
[2022-02-09 10:17] LABS: Bilirubin Negative (Negative); Blood, Urine Negative (Negative); Clarity Clear (Clear); Glucose, Urine (Dipstick) Normal (Negative); Ketone, Urine Negative (Negative); Leukocyte Negative Leu/uL (Negative); Nitrite Negative (Negative); Protein, Urine (Dipstick) 10 mg/dL (Neg-Trace); Specific Gravity, Urine 1.027 (1.002-1.036); Urobilinogen Normal mg/dL (Less than 2); pH, Urine 5.5 (5.0-9.0)
== END 2022-02-09 11:00 | disposition home or self-care (01) ==
LOC: ERS 08:18
DX: R11.2 Nausea with vomiting, unspecified (principal); R10.9 Unspecified abdominal pain; I10 Essential (primary) hypertension; K21.9 Gastro-esophageal reflux disease without esophagitis; D64.9 Anemia, unspecified
CPT/HCPCS: 74177; 80053; 81003; 83690; 85025; 96374; 96375; J1885; J2405; Q9967

== ENCOUNTER 2022-07-27 21:37 | Emergency (ER) | payer OTHER, SELFPAY ==
[2022-07-28] MEDS ORDERED: Morphine 4 MG/ML VIAL ONE ×2 (00:09→02:36)
[2022-07-28] MEDS ORDERED: Ondansetron PF 4 MG/2 ML Vial ONE (00:09)
[2022-07-28 00:58] LABS: #Basophils 0.1 thou/uL (0.0-0.2); #Eosinphils 0.2 thou/uL (0.0-0.7); #Lymphocytes 2.8 thou/uL (1.20-3.40); #Monocytes 0.6 thou/uL (0.11-0.59); #Neutrophils 7.9 thou/uL (1.40-6.50); %Basophils 0.5 % (0.0-1.0); %Eosinophils 1.6 % (0.0-10.0); %Monocytes 5.1 % (0.0-10.0); %Neutrophils 68.8 % (42.0-75.0); Hemoglobin 11.6 g/dL (12.0-16.0); Mean Corpuscular Volume 84.4 fL (78.0-98.0); Mean Platelet Volume 7.4 fL (7.4-10.4); Platelet Count 441 thou/uL (130-400); RBC Distribution Width 12.7 % (11.5-14.5); Red Blood Cell (RBC) Count 4.27 mill/uL (4.20-5.40); White Blood Cell (WBC) Count 11.5 thou/uL (4.8-10.8)
[2022-07-28 01:11] LABS: BHCG - Serum Negative (NEGATIVE); Pregs Control Background? CLEAR/WHITE (CLR/WHITE); Pregs Control Bar Appear? YES (CONTROL BAR)
[2022-07-28 01:21] LABS: ALT (SGPT) 10 U/L (8-55); AST (SGOT) 17 U/L (5-34); Albumin 4.3 g/dL (3.5-5.0); Alkaline Phosphatase 100 U/L (40-110); Anion Gap 13 mmol/L (10-20); BUN (Urea Nitrogen) 18 mg/dL (7.0-18.7); Bilirubin, Total 0.3 mg/dL (0.2-1.2); Calc. Creatinine Clearance 0 mL/min (70-130); Calcium 9.3 mg/dL (7.8-10.44); Carbon Dioxide 20 mmol/L (22-29); Chloride 109 mmol/L (98-107); Estimated GFR 112; Globulin 3.7 g/dL (2.4-3.5); Glucose 107 mg/dL (70-105); Lipase 38 U/L (8-78); Potassium 3.6 mmol/L (3.5-5.1); Sodium 138 mmol/L (136-145)
[2022-07-28 01:28] LABS: Bilirubin Negative (Negative); Blood, Urine Negative (Negative); Clarity Clear (Clear); Glucose, Urine (Dipstick) Normal (Negative); Ketone, Urine Negative (Negative); Leukocyte Negative Leu/uL (Negative); Nitrite Negative (Negative); Protein, Urine (Dipstick) Negative (Neg-Trace); Specific Gravity, Urine 1.023 (1.002-1.036); Urobilinogen Normal mg/dL (Less than 2); pH, Urine 5.5 (5.0-9.0)
[2022-07-28] MEDS ORDERED: Ketorolac Tromethamine 30 MG/ML VIAL ONE (03:17)
[2022-07-28] MEDS ORDERED: Iopamidol-370 76% 500 ML 1 ML ONE (09:44)
== END 2022-07-28 03:30 | disposition home or self-care (01) ==
LOC: ERS 21:37
DX: R10.31 Right lower quadrant pain (principal); R19.7 Diarrhea, unspecified; R11.2 Nausea with vomiting, unspecified; I10 Essential (primary) hypertension; F17.290 Nicotine dependence, other tobacco product, uncomplicated; Z79.899 Other long term (current) drug therapy
CPT/HCPCS: 36415; 74177; 80053; 81003; 83605; 83690; 84703; 85025; 87086; 96374; 96375; 96376; J1885; J2270; J2405

== ENCOUNTER 2023-02-15 14:22 | Emergency (ER) | payer BC, OTHER ==
[~2023-02-15 14:22] MED LIST changes: +Iopamidol 370 76% 100 ML VIAL ONE; -Iopamidol 370 76% 50 ML VIAL FS ONE; -Iopamidol-370 76% 500 ML 1 ML ONE
[2023-02-15] MEDS ORDERED: Ketorolac Tromethamine 30 MG/ML VIAL ONE (15:44)
[2023-02-15] MEDS ORDERED: Ondansetron PF 4 MG/2 ML Vial ONE (15:44)
[2023-02-15] MEDS ORDERED: Dicyclomine 20 MG/2 ML VIAL ONE (15:44)
[2023-02-15 16:19] LABS: #Basophils 0.1 thou/uL (0.0-0.2); #Eosinphils 0.4 thou/uL (0.0-0.7); #Monocytes 0.4 thou/uL (0.11-0.59); #Neutrophils 5.5 thou/uL (1.40-6.50); %Basophils 0.6 % (0.0-1.0); %Eosinophils 4.5 % (0.0-10.0); %Lymphocytes 25.6 % (21.0-51.0); %Monocytes 4.9 % (0.0-10.0); %Neutrophils 63.9 % (42.0-75.0); Hemoglobin 11.8 g/dL (12.0-16.0); Mean Corpuscular HGB CONC 31.1 g/dL (32.0-36.0); Mean Corpuscular Hemoglobin 25.3 pg (27.0-31.0); Mean Corpuscular Volume 81.3 fl (78.0-98.0); Mean Platelet Volume 9.4 fL (7.4-10.4); Platelet Count 431 10x3/uL (130-400); RBC Distribution Width 14.3 % (11.5-14.5); Red Blood Cell (RBC) Count 4.66 mill/uL (4.20-5.40); White Blood Cell (WBC) Count 8.6 10x3/uL (4.8-10.8)
[2023-02-15 16:40] LABS: ALT (SGPT) 13 U/L (8-55); AST (SGOT) 16 U/L (5-34); Albumin 4.5 g/dL (3.5-5.0); Alkaline Phosphatase 92 U/L (40-110); Anion Gap 13 mmol/L (10-20); BUN (Urea Nitrogen) 10 mg/dL (7.0-18.7); Bilirubin, Total 0.2 mg/dL (0.2-1.2); Calc. Creatinine Clearance 0 mL/min (70-130); Carbon Dioxide 24 mmol/L (22-29); Chloride 108 mmol/L (98-107); Estimated GFR 115; Globulin 3.4 g/dL (2.4-3.5); Glucose 73 mg/dL (70-105); Lipase 33 U/L (8-78); Protein, Total 7.9 g/dL (6.0-8.3); Sodium 141 mmol/L (136-145)
[2023-02-15 16:41] LABS: Bilirubin Negative (Negative); Blood, Urine Negative (Negative); Clarity Clear (Clear); Glucose, Urine (Dipstick) Normal (Negative); Ketone, Urine Negative (Negative); Leukocyte Negative Leu/uL (Negative); Nitrite Negative (Negative); Protein, Urine (Dipstick) Negative (Neg-Trace); Specific Gravity, Urine 1.026 (1.002-1.036); Urobilinogen Normal mg/dL (Less than 2); pH, Urine 5.5 (5.0-9.0)
[2023-02-15 16:45] LABS: Pregnancy Test - Urine (BHCG) Negative (Negative)
[2023-02-15 16:46] LABS: Pregu Control Background? CLEAR/WHITE (CLR/WHITE); Pregu Control Bar Appear? YES (CONTROL BAR); Specific Gravity 1.026 (1.002-1.036)
== END 2023-02-15 18:48 | disposition home or self-care (01) ==
LOC: ERS 14:22
DX: A08.4 Viral intestinal infection, unspecified (principal); I10 Essential (primary) hypertension; K21.9 Gastro-esophageal reflux disease without esophagitis; F17.290 Nicotine dependence, other tobacco product, uncomplicated
CPT/HCPCS: 71045; 74177; 80053; 81003; 81025; 83690; 84484; 85025; 93005; 96361; 96372; 96374; 96375; J1885; J2405; Q9967

== ENCOUNTER 2023-06-11 16:19 | Emergency (ER) | payer BC, SELFPAY ==
[2023-06-11] MEDS ORDERED: Acetaminophen 500 MG TAB ONE ×2 (17:26→17:30)
[2023-06-11] MEDS ORDERED: Benzonatate 100 MG CAP ONE (17:27)
[2023-06-11 18:13] LABS: SARS-CoV-2 NAA Rapid Test DETECTED (NotDetected)
== END 2023-06-11 18:33 | disposition home or self-care (01) ==
LOC: ERS 16:19
DX: U07.1 COVID-19 (principal); I10 Essential (primary) hypertension; F17.290 Nicotine dependence, other tobacco product, uncomplicated
CPT/HCPCS: 99283

== ENCOUNTER 2023-06-29 09:02 | Emergency (ER) | payer OTHER, SELFPAY ==
[2023-06-29] MEDS ORDERED: Acetaminophen 500 MG TAB ONE (09:39)
[2023-06-29] MEDS ORDERED: Ketorolac Tromethamine 30 MG/ML VIAL ONE (09:39)
[2023-06-29 10:14] LABS: #Eosinphils 0.1 thou/uL (0.0-0.7); #Monocytes 0.4 thou/uL (0.11-0.59); #Neutrophils 5.6 thou/uL (1.40-6.50); %Basophils 0.5 % (0.0-1.0); %Eosinophils 1.8 % (0.0-10.0); %Lymphocytes 19.9 % (21.0-51.0); %Monocytes 5.5 % (0.0-10.0); Hematocrit 34.9 % (36.0-47.0); Hemoglobin 11.1 g/dL (12.0-16.0); Mean Corpuscular HGB CONC 31.8 g/dL (32.0-36.0); Mean Corpuscular Hemoglobin 25.3 pg (27.0-31.0); Mean Corpuscular Volume 79.5 fl (78.0-98.0); Mean Platelet Volume 9.5 fL (7.4-10.4); Platelet Count 433 10x3/uL (130-400); RBC Distribution Width 14.1 % (11.5-14.5); Red Blood Cell (RBC) Count 4.39 mill/uL (4.20-5.40); White Blood Cell (WBC) Count 7.8 10x3/uL (4.8-10.8)
[2023-06-29 10:22] LABS: BHCG - Serum Negative (NEGATIVE); Pregs Control Background? CLEAR/WHITE (CLR/WHITE); Pregs Control Bar Appear? YES (CONTROL BAR)
[2023-06-29] MEDS ORDERED: Iopamidol-370 76% 500 ML MDV (1 ML CHARGE) ONE (10:30)
[2023-06-29 10:36] LABS: ALT (SGPT) 9 U/L (8-55); AST (SGOT) 18 U/L (5-34); Albumin 4.2 g/dL (3.5-5.0); Alkaline Phosphatase 89 U/L (40-110); Anion Gap 14 mmol/L (10-20); BUN (Urea Nitrogen) 13 mg/dL (7.0-18.7); Bilirubin, Total 0.4 mg/dL (0.2-1.2); Calc. Creatinine Clearance 0 mL/min (70-130); Calcium 9.4 mg/dL (7.8-10.44); Carbon Dioxide 22 mmol/L (22-29); Chloride 104 mmol/L (98-107); Estimated GFR 113; Globulin 3.6 g/dL (2.4-3.5); Glucose 96 mg/dL (70-105); Potassium 4.2 mmol/L (3.5-5.1); Protein, Total 7.8 g/dL (6.0-8.3); Sodium 136 mmol/L (136-145)
[2023-06-29 11:26] LABS: Bacteria/HPF None Seen HPF (None Seen); Bilirubin Negative (Negative); Blood, Urine Negative (Negative); CAUTI Indications for Culture Dysuria,urgency,freq; Clarity Clear (Clear); Glucose, Urine (Dipstick) Normal (Negative); Ketone, Urine Negative (Negative); Leukocyte Negative Leu/uL (Negative); Nitrite Negative (Negative); Protein, Urine (Dipstick) Negative (Neg-Trace); RBC/HPF 0-3 HPF (0-3); Specific Gravity, Urine 1.022 (1.002-1.036); Squamous Epithelial 0-3 HPF (0-3); Urobilinogen Normal mg/dL (Less than 2); WBC/HPF 0-3 HPF (0-3); pH, Urine 6.5 (5.0-9.0)
[2023-06-29 11:27] LABS: Urine Culture Reflex No No
== END 2023-06-29 11:05 | disposition home or self-care (01) ==
LOC: ERS 09:02
DX: S30.1XXA Contusion of abdominal wall, initial encounter (principal); S16.1XXA Strain of muscle, fascia and tendon at neck level, initial encounter; I10 Essential (primary) hypertension; M25.512 Pain in left shoulder; F17.290 Nicotine dependence, other tobacco product, uncomplicated; V89.2XXA Person injured in unspecified motor-vehicle accident, traffic, initial encounter
CPT/HCPCS: 36415; 71045; 72040; 74177; 80053; 81001; 84703; 85025; 96372; J1885; Q9967

== ENCOUNTER 2024-07-06 22:19 | Emergency (ER) | payer OTHER, SELFPAY ==
[2024-07-06] MEDS ORDERED: predniSONE 20 MG TAB ONE (23:44)
[2024-07-06] MEDS ORDERED: HYDROcodone/Acetaminophen 5/325 mg Tablet ONE (23:45)
== END 2024-07-06 23:50 | disposition home or self-care (01) ==
LOC: ERS 22:19
DX: M54.50 Low back pain, unspecified (principal); I10 Essential (primary) hypertension; F17.290 Nicotine dependence, other tobacco product, uncomplicated
CPT/HCPCS: 99283; J7512

== ENCOUNTER 2024-09-01 03:12 | Emergency (ER) | payer OTHER, SELFPAY ==
[2024-09-01] MEDS ORDERED: diphenhydrAMINE 50 MG/ML VIAL ONE (03:46)
[2024-09-01] MEDS ORDERED: Metoclopramide HCl 10 MG (2 mL) VIAL ONE (03:46)
[2024-09-01 04:35] LABS: #Basophils 0.04 10x3/uL (0.0-0.2); %Basophils 0.4 % (0.0-1.0); %Eosinophils 2.5 % (0.0-10.0); %Lymphocytes 34.8 % (21.0-51.0); %Monocytes 5.5 % (0.0-10.0); Hematocrit 32.6 % (36.0-47.0); Hemoglobin 10.6 g/dL (12.0-16.0); Mean Corpuscular HGB CONC 32.5 g/dL (32.0-36.0); Mean Corpuscular Hemoglobin 24.9 pg (27.0-31.0); Mean Corpuscular Volume 76.7 fL (78.0-98.0); Mean Platelet Volume 9.2 fL (7.4-10.4); Platelet Count 413 10x3/uL (130-400); RBC Distribution Width 15.9 % (11.5-14.5); Red Blood Cell (RBC) Count 4.25 mill/uL (4.20-5.40)
[2024-09-01 04:49] LABS: ALT (SGPT) 16 U/L (8-55); AST (SGOT) 15 U/L (5-34); Albumin 3.7 g/dL (3.5-5.0); Alkaline Phosphatase 83 U/L (40-110); Anion Gap 14 mmol/L (10-20); BUN (Urea Nitrogen) 19 mg/dL (7.0-18.7); Bilirubin, Total 0.2 mg/dL (0.2-1.2); Calc. Creatinine Clearance 0 mL/min (70-130); Calcium 9.1 mg/dL (7.8-10.44); Carbon Dioxide 20 mmol/L (22-29); Chloride 107 mmol/L (98-107); Estimated GFR 111; Globulin 3.4 g/dL (2.4-3.5); Glucose 140 mg/dL (70-105); Potassium 3.3 mmol/L (3.5-5.1); Protein, Total 7.1 g/dL (6.0-8.3); Sodium 138 mmol/L (136-145)
[2024-09-01 04:52] LABS: BHCG - Serum Negative (NEGATIVE); Pregs Control Background? CLEAR/WHITE (CLR/WHITE); Pregs Control Bar Appear? YES (CONTROL BAR)
[2024-09-01] MEDS ORDERED: Ketorolac Tromethamine 30 MG (1 mL) VIAL ONE (05:10)
[2024-09-01] MEDS ORDERED: Magnesium 2 GM/50 ML BAG (IN WATER) ONE (05:10)
[2024-09-01] MEDS ORDERED: WATER IVPB SCH (08:00)
[2024-09-01] MEDS ORDERED: SODIUM BENZOATE IVPB SCH (08:00)
[2024-09-01] MEDS ORDERED: CAFFEINE IVPB SCH (08:00)
[2024-09-01] MEDS ORDERED: DEXTROSE 5% IVPB SCH (08:00)
[2024-09-01] MEDS ORDERED: Caffeine/Sodium Benzoate 0.5 GM in Sodium Chloride 0.9% 1,000 ML IVPB SCH (08:00)
[2024-09-01] MEDS ORDERED: Iopamidol-370 76% 500 ML MDV (1 ML CHARGE) ONE (12:12)
== END 2024-09-01 18:18 | disposition admitted as inpatient to this hospital (09) ==
LOC: ERS 03:12
DX: R53.1 Weakness (principal); I10 Essential (primary) hypertension
CPT/HCPCS: 70496; 72132; 80053; 84703; 85025; 85610; J0706; J1200; J1885; J2765; J3475; J7030; Q9967